=== PATIENT | female | born 1975 | race Caucasian/White ===

== ENCOUNTER 2017-01-18 20:39 | Emergency (ER) | payer BC, OTHER ==
[2017-01-18] MEDS ORDERED: METHYLPREDNISOLONE PF 125MG/VIAL IVP ONE (20:58)
[2017-01-18] MEDS ORDERED: IPRATROPIUM/ALBUTEROL (0.5MG/3MG) NEB INH ONE (20:59)
--- NOTE | 2017-01-18 21:04 | Emergency Department Record ---
History of Present Illness - General Chief Complaint: Difficulty Breathing Stated Complaint: FREDERIC Time Seen by Provider: 01/18/17 20:45 Source: Patient Mode of Arrival: Wheelchair Limitations: No limitations - History of Present Illness Initial Comments: pt has had upper resp illness which got much worse today w sob. pt has been hospitalized for resp distress in the last year. pt also has a toothache which hurts in the lower r jaw with numbnessover jaw MD Complaint: "Asthma attack" Onset/Timin -: Days(s) Severity: Mild Consistency: Getting worse Improves With: Nothing Worsens With: Exertion Known History Of: Asthma Associated Symptoms: Denies other symptoms Treatments Prior to Arrival: Bronchodilator - Related Data Home Oxygen Therapy: No Home Medications Medication Instructions Recorded Confirmed Last Taken Albuterol Sulfate [Ventolin Hfa] 1 - 2 puff IH .EVERY 4-6 HOURS PRN 01/18/1709/29 Unknown Duloxetine HCl [Cymbalta] 60 mg PO DAILY 01/18/17 01/18/17 Unknown Pregabalin [Lyrica] 75 mg PO DAILY 01/18/17 01/18/17 Unknown Previous Rx's Medication Instructions Recorded Cephalexin [Keflex] 500 mg PO QID #30 cap 01/18/17 Hydrocodone/Acetaminophen [[place] 1 each PO Q6HR #7 tablet 01/18/17 5-325 Tablet] Prednisone [Prednisone 20Mg] 20 mg PO BIDPC #8 tab 01/18/17 Allergies Allergy/AdvReac Type Severity Reaction Status Date / Time azithromycin Allergy RASH Verified 01/18/17 20:52 Penicillins Allergy PT UNSURE Verified 01/18/17 20:52 OF REACTION Travel Screening - Travel/Exposure Within Last 30 Days Have you traveled within the last 30 days?: No - Travel/Exposure Within Last Year Have you traveled outside the [place] in the last year?: No - Additonal Travel Details Have you been exposed to anyone with a communicable illness?: No - Travel Symptoms Symptom Screening: None Review of Systems Reviewed: No additional complaints except as noted below Constitutional: Reports: As per HPI. Denies: Chills, Fever, Malaise, Night sweats, Weakness, Weight change Eyes: Reports: As per HPI. Denies: Eye discharge, Eye pain, Photophobia, Vision change ENT: Reports: As per HPI. Denies: Congestion, Dental pain, Ear pain, Epistaxis , Hearing loss, Throat pain Respiratory: Reports: As per HPI. Denies: Cough, Dyspnea, Hemoptysis, Stridor, Wheezes Cardiovascular: Reports: As per HPI. Denies: Arrhythmia, Chest pain, Dyspnea on exertion, Edema, Murmurs, Orthopnea, Palpitations, Paroxysmal nocturnal dyspnea, Rheumatic Fever, Syncope Endocrine: Reports: As per HPI. Denies: Fatigue, Heat or cold intolerance, Polydipsia, Polyuria Gastrointestinal: Reports: As per HPI. Denies: Abdominal pain, Constipation, Diarrhea, Hematemesis, Hematochezia, Melena, Nausea, Vomiting Genitourinary: Reports: As per HPI. Denies: Abnormal menses, Discharge, Dyspareunia, Dysuria, Frequency, Hematuria, Incontinence, Retention, Urgency Musculoskeletal: Reports: As per HPI. Denies: Arthralgia, Back pain, Gout, Joint swelling, Myalgia, Neck pain Skin: Reports: As per HPI. Denies: Bruising, Change in color, Change in hair/ nails, Lesions, Pruritus, Rash Neurological: Reports: As per HPI. Denies: Abnormal gait, Confusion, Headache, Numbness, Paresthesias, Seizure, Tingling, Tremors, Vertigo, Weakness Psychiatric: Reports: As per HPI. Denies: Anxiety, Auditory hallucinations, Depression, Homicidal thoughts, Suicidal thoughts, Visual hallucinations Hematological/Lymphatic: Reports: As per HPI. Denies: Anemia, Blood Clots, Easy bleeding, Easy bruising, Swollen glands Past Medical History - SOCIAL HISTORY Smoking Status: Current every day smoker Alcohol Use: None Drug Use: None - RESPIRATORY Hx Respiratory Disorders: Yes Hx Asthma: Yes Comment:: hospitalized with ARDS and hypoxia at [facility] last yr. - CARDIOVASCULAR Hx Cardio Disorders: No - NEURO Hx Neuro Disorders: No - GI Hx GI Disorders: No - Hx Genitourinary Disorders: No - ENDOCRINE Hx Endocrine Disorders: No - MUSCULOSKELETAL Hx Musculoskeletal Disorders: Yes Hx Fibromyalgia: Yes - PSYCH Hx Psych Problems: Yes Hx Anxiety: Yes - HEMATOLOGY/ONCOLOGY Hx Hematology/Oncology Disorders: No Family Medical History Any Significant Family History?: No Physical Exam - General General Appearance: Alert, Oriented x3, Cooperative, Mild distress - Head Head exam: Normal inspection - Eye Eye exam: Normal appearance, PERRL, EOMI Pupils: Normal accommodation - ENT ENT exam: Normal exam, Mucous membranes moist, Normal external ear exam, Normal orophraynx Ear exam: Normal external inspection. negative: External canal tenderness Nasal Exam: Normal inspection. negative: Discharge, Sinus tenderness Mouth exam: Normal external inspection, Tongue normal Teeth exam: Normal inspection. negative: Dental caries Throat exam: Normal inspection. negative: Tonsillar erythema, Tonsillar exudate - Neck Neck exam: Normal inspection, Full ROM. negative: Tenderness - Respiratory Respiratory exam: Accessory muscle use, Respiratory distress, Wheezes - Cardiovascular Cardiovascular Exam: Regular rate, Normal rhythm, Normal heart sounds - GI/Abdominal GI/Abdominal exam: Soft, Normal bowel sounds. negative: Tenderness - Rectal Rectal exam: Deferred - exam: Deferred - Extremities Extremities exam: Normal inspection, Full ROM, Normal capillary refill. negative: Tenderness - Back Back exam: Reports: Normal inspection, Full ROM. Denies: Muscle spasm, Rash noted, Tenderness - Neurological Neurological exam: Alert, CN II-XII intact, Normal gait, Oriented X3 - Psychiatric Psychiatric exam: Normal affect, Normal mood - Skin Skin exam: Dry, Intact, Normal color, Warm Course Vital Signs 01/18/17 01/18/17 01/18/17 20:42 20:46 20:54 Temperature 98.3 F Pulse Rate 95 H Pulse Rate [ 104 H 95 H Pulse Ox Probe] Respiratory 42 H 40 H 40 H Rate Blood Pressure 126/60 Blood Pressure 126/60 [Left Arm] Pulse Ox 99 99 - Reevaluation(s) Reevaluation #1: 01/18/17 22:21 pt feels better. still has some expiratory wheezing Reevaluation #2: 01/18/17 23:23 pt feels better Medical Decision Making - Lab Data Result diagrams: 01/18/17 21:05 01/18/17 21:05 Disposition Disposition: Discharge Clinical Impression: Asthma attack, Tooth ache Disposition: Home, Self-Care Condition: (1) Good Instructions: Asthma (ED), Toothache (ED) Additional Instructions: follow up with family doctor and with dentist. return sooner if worse. Prescriptions: Hydrocodone/Acetaminophen [Newry 5-325 Tablet] 1 each PO Q6HR #7 tablet Cephalexin [Keflex] 500 mg PO QID #30 cap Prednisone [Prednisone 20Mg] 20 mg PO BIDPC #8 tab Forms: Patient Portal Access Quality - Quality Measures Quality Measures: N/A - Blood Pressure Screening Does Patient Have Any of the Following: No Blood Pressure Classification: Pre-Hypertensive BP Reading Systolic Measurement: 126 Diastolic Measurement: 60 Screening for High Blood Pressure: < Pre-Hypertensive BP, F/U Documented > [ G8950] Pre-Hypertensive Follow-up Interventions: Follow-up with rescreen every year.
[2017-01-18 21:09] LABS: HEMATOCRIT 25.8 % (35.0-47.0); HEMOGLOBIN 7.6 gm/dl (11.6-16.0); MEAN CELL VOLUME 70.1 fl (81-97); MEAN CORPUSCULAR HGB CONC 29.5 g/dl (32-36); MEAN PLATELET VOLUME 9.8 fl (7.4-10.4); PLATELET COUNT 165 K/uL (130-400); RED BLOOD COUNT 3.68 M/uL (3.80-5.40); RED CELL DISTRIBUTION WIDTH 20.5 % (11.5-14.5); WHITE BLOOD COUNT W/O DIFF 6.9 K/uL (4.2-12.2)
[2017-01-18 21:10] LABS: MEAN CORPUSCULAR HEMOGLOBIN 20.6 pg (27-33)
[2017-01-18 21:20] LABS: ANION GAP 8.8 (7-16); BLOOD UREA NITROGEN 12 mg/dL (7-17); CARBON DIOXIDE 20.2 mmol/L (22-30); EST GLOMERULAR FILTRATION RATE > 60 ml/min; GLUCOSE,RANDOM 109 mg/dL (70-110)
[2017-01-18] MEDS ORDERED: ALBUTEROL SULFATE (0.083%) 2.5 MG/3 ML NEB INH ONE ×2 (22:16→22:57)
[2017-01-18] MEDS ORDERED: CEPHALEXIN 500 MG CAPSULE PO STA (22:58)
[2017-01-18] MEDS ORDERED: HYDROCODONE/APAP 5/325MG TABLET PO ONE (23:26)
--- NOTE | 2017-01-19 10:53 | RADIOLOGY REPORT ---
EXAM: CHEST, TWO VIEWS HISTORY: ASTHMA, ACUTE DIFFICULTY BREATHING. TECHNIQUE: Two views of the chest were obtained. Comparison: None. FINDINGS: No consolidative change identified. There is peribronchial cuffing. The cardiac silhouette, diaphragm, and osseous structures are unremarkable. IMPRESSION: PERIBRONCHIAL CUFFING WHICH CAN BE SEEN WITH REACTIVE AIRWAY DISEASE. NO DENSE INFILTRATE IDENTIFIED. JOB NUMBER: [id number] MTDD
== END 2017-01-18 23:45 | disposition home or self-care (01) ==
LOC: ER 20:39
DX: J45.901 Unspecified asthma with (acute) exacerbation (principal); F17.210 Nicotine dependence, cigarettes, uncomplicated; K08.89 Other specified disorders of teeth and supporting structures
CPT/HCPCS: 71020; 80048; 85027; 94640; 96374; 99284; J2930; J7613

== ENCOUNTER 2017-01-19 17:25 | Inpatient (IN) | payer OTHER ==
[2017-01-19] MEDS ORDERED: ACETAMINOPHEN 325 MG TAB PO ONE (17:43)
[2017-01-19] MEDS ORDERED: METHYLPREDNISOLONE PF 125MG/VIAL IVP ONE (17:44)
[2017-01-19] MEDS ORDERED: IPRATROPIUM/ALBUTEROL (0.5MG/3MG) NEB INH ONE (17:44)
[2017-01-19] MEDS ORDERED: LORAZEPAM 2 MG/ML VIAL IV ONE (17:46)
--- NOTE | 2017-01-19 17:54 | Emergency Department Record ---
History of Present Illness - General Chief Complaint: Asthma Stated Complaint: SHORT OF BREATH Time Seen by Provider: 01/19/17 17:37 Source: Patient Mode of Arrival: Ambulatory Limitations: No limitations - History of Present Illness Initial Comments: The patient is here due to a 2 day hx of cough and congestion. She was in the ED last evening about 24 hours ago for the same thing and was diagnosed with an URI with reactive airway dz and possibly an abscessed tooth. She was discharged on an inhaller, Prednisone and Keflex. Now she states her FREDERIC is worse and she is getting SOB with any exertion. She also has a dry cough but denies any chest pain, back pain, EDGE, or sputum production. The patient states she had a hx of being hospitalized last year at [facility] due to a URI and ARDS with Hypoxia. MD Complaint: Shortness of breath, Wheezing Onset/Timin -: Hour(s) Asthma History: Adult onset, History of prior ED visit Severity: Mild Associated Symptoms: Fever Treatments Prior to Arrival: Inhaled bronchodilator Treatment Prior to Arrival Comment:: albuterol. - Related Data Current Asthma Therapy: Inhaled bronchodilator Home Medications Medication Instructions Recorded Confirmed Last Taken Ibuprofen 800 mg PO Q8HR PRN 01/19/17 01/19/17 01/19/17 12:00 800 mg Nicotine [Nicotine 21Mg] 1 patch TD DAILY 01/19/17 01/19/17 01/19/17 12:00 Pregabalin [Lyrica] 600 mg PO DAILY 01/19/17 01/19/17 01/19/17 10:00 600 mg Previous Rx's Medication Instructions Recorded Cephalexin [Keflex] 500 mg PO QID #30 cap 01/18/17 Hydrocodone/Acetaminophen [[place] 1 each PO Q6HR #7 tablet 01/18/17 5-325 Tablet] Prednisone [Prednisone 20Mg] 20 mg PO BIDPC #8 tab 01/18/17 Allergies Allergy/AdvReac Type Severity Reaction Status Date / Time azithromycin Allergy RASH Verified 01/19/17 17:28 Penicillins Allergy PT UNSURE Verified 01/19/17 17:28 OF REACTION Travel Screening - Travel/Exposure Within Last 30 Days Have you traveled within the last 30 days?: No - Travel/Exposure Within Last Year Have you traveled outside the [place] in the last year?: No - Additonal Travel Details Have you been exposed to anyone with a communicable illness?: No - Travel Symptoms Symptom Screening: None Review of Systems Constitutional: Reports: Fever, Malaise. Denies: Chills Eyes: Denies: Eye discharge ENT: Reports: Congestion Respiratory: Reports: Cough, Dyspnea Cardiovascular: Denies: Arrhythmia, Chest pain Endocrine: Reports: Fatigue Gastrointestinal: Denies: Diarrhea Genitourinary: Denies: Dysuria Musculoskeletal: Denies: Back pain Past Medical History - SOCIAL HISTORY Smoking Status: Current every day smoker Alcohol Use: None Drug Use: None - RESPIRATORY Hx Respiratory Disorders: Yes Hx Asthma: Yes Comment:: hospitalized with ARDS and hypoxia at [facility] last yr. - CARDIOVASCULAR Hx Cardio Disorders: No - NEURO Hx Neuro Disorders: No - GI Hx GI Disorders: No - Hx Genitourinary Disorders: No - ENDOCRINE Hx Endocrine Disorders: No - MUSCULOSKELETAL Hx Musculoskeletal Disorders: Yes Hx Fibromyalgia: Yes - PSYCH Hx Psych Problems: Yes Hx Anxiety: Yes - HEMATOLOGY/ONCOLOGY Hx Hematology/Oncology Disorders: No Family Medical History Any Significant Family History?: No Physical Exam - General General Appearance: Alert, Oriented x3, Cooperative, No acute distress - Head Head exam: Atraumatic, Normocephalic, Normal inspection - Eye Eye exam: Normal appearance, PERRL - ENT ENT exam: Normal exam, Mucous membranes moist, Normal external ear exam, Normal orophraynx, TM's normal bilaterally Throat exam: Normal inspection. negative: Tonsillar erythema, Tonsillar exudate - Neck Neck exam: Normal inspection, Full ROM. negative: Tenderness - Respiratory Respiratory exam: Decreased breath sounds, Wheezes (mildly at the bases.). negative: Normal lung sounds bilaterally, Accessory muscle use, Prolonged expiratory, Respiratory distress, Rhonchi, Stridor - Cardiovascular Cardiovascular Exam: Regular rate, Normal rhythm, Normal heart sounds - GI/Abdominal GI/Abdominal exam: Soft, Normal bowel sounds. negative: Tenderness - Extremities Extremities exam: Normal inspection, Full ROM, Normal capillary refill. negative: Tenderness - Neurological Neurological exam: Normal gait. negative: Abnormal gait, Alert, Motor sensory deficit Course Vital Signs 01/19/17 17:29 Temperature 101.0 F H Pulse Rate 99 H Respiratory 22 Rate Blood Pressure 151/83 Pulse Ox 96 - Reevaluation(s) Reevaluation #1: The patient is doing much better at this time. She is resting comfortably and breathing much better. Her repeat temp is 99.1 and she is breathing at 15 times a minute with a biox of 97% on 2 liters of O2. On exam she is still wheezing but no longer is labored and has good aeration. Due to her hx of severe infections and the fact she has worsened since presenting to the ER here last night she will be admitted to the hospital. I did discuss the case with Genesis HIDALGO) and she does accept the patient for Dr. Lara. 01/19/17 18:48 Medical Decision Making - Lab Data Result diagrams: 01/20/17 06:29 01/19/17 18:00 Disposition Disposition: Admit Clinical Impression: Asthma attack Pneumonia Qualifiers: Pneumonia type: due to unspecified organism Laterality: left Lung location: unspecified part of lung Qualified Code(s): J18.9 - Pneumonia, unspecified organism Disposition: Still a Patient at [facility] Decision to Admit: Admit from ER Decision to Admit Date: 01/19/17 Decision to Admit Time: 18:50 Accepting Physician: Jane Time Discussed w/Accepting Physician: 18:50 Condition: (2) Stable Time of Disposition: 18:50 Quality - Quality Measures Quality Measures: N/A - Blood Pressure Screening View Details: Yes Does Patient Have Any of the Following: No Blood Pressure Classification: Pre-Hypertensive BP Reading Systolic Measurement: 151 Diastolic Measurement: 83 Screening for High Blood Pressure: < Pre-Hypertensive BP, F/U Documented > [ G8950] Pre-Hypertensive Follow-up Interventions: Referral to alternative/primary care provider.
[2017-01-19] MEDS ORDERED: ALBUTEROL SULFATE (0.083%) 2.5 MG/3 ML NEB INH ONE (18:07)
[2017-01-19 18:11] LABS: HEMATOCRIT 25.1 % (35.0-47.0); HEMOGLOBIN 7.4 gm/dl (11.6-16.0); MEAN CELL VOLUME 69.9 fl (81-97); MEAN CORPUSCULAR HEMOGLOBIN 20.6 pg (27-33); MEAN CORPUSCULAR HGB CONC 29.5 g/dl (32-36); PLATELET COUNT 197 K/uL (130-400); RED BLOOD COUNT 3.59 M/uL (3.80-5.40); RED CELL DISTRIBUTION WIDTH 20.9 % (11.5-14.5)
[2017-01-19] MEDS ORDERED: LEVOFLOXACIN/D5W 750 MG/150 ML BAG IVPB ONE (18:19)
[2017-01-19 18:23] LABS: ANISOCYTOSIS 1+; HYPOCHROMIA 2+; MICROCYTOSIS 1+; PLATELET ESTIMATE NORMAL (NORMAL)
[2017-01-19 18:24] LABS: ALB/GLOB RATIO 1.2 (1.1-1.8); ALBUMIN 3.6 gm/dL (3.5-5.0); ALKALINE PHOSPHATASE 52 U/L (38-126); ALT/SGPT 49 U/L (9-52); ANION GAP 8.2 (7-16); AST/SGOT 25 U/L (14-36); BILIRUBIN,TOTAL 0.75 mg/dL (0.2-1.3); BLOOD UREA NITROGEN 10 mg/dL (7-17); CARBON DIOXIDE 20.8 mmol/L (22-30); CREATININE 0.8 mg/dL (0.52-1.04); EST GLOMERULAR FILTRATION RATE > 60 ml/min; GLUCOSE,RANDOM 111 mg/dL (70-110); TOTAL PROTEIN 6.6 gm/dL (6.3-8.2)
[2017-01-19 18:36] LABS: C-REACTIVE PROTEIN 21.3 mg/dL (0.0-0.9)
[2017-01-19] MEDS ORDERED: IBUPROFEN 600 MG TABLET PO ONE (18:50)
[2017-01-19] MEDS ORDERED: FERROUS SULFATE 325 MG TAB PO SCH (19:08)
[2017-01-19] MEDS ORDERED: ACETAMINOPHEN 500 MG TABLET PO PRN (22:51)
[2017-01-19] MEDS: FERROUS SULFATE 325 MG TAB PO SCH (22:53)
[2017-01-19] MEDS ORDERED: FLU VAC QS 2017-18 (INPT, 6MO+) 60MCG/0.5ML IM ONE (23:36)
[2017-01-20] MEDS: HYDROCODONE/APAP 5/325MG TABLET PO SCH ×2 (00:06→07:33)
[2017-01-20] MEDS: IPRATROPIUM/ALBUTEROL (0.5MG/3MG) NEB INH PRN ×7 (02:57→21:47)
[2017-01-20] MEDS: IBUPROFEN 600 MG TABLET PO PRN ×2 (03:27→11:40)
--- NOTE | 2017-01-20 05:40 | History & Physical ---
History of Present Illness - Date of Service Date of Service for History & Physical: 01/20/17 - History of Present Illness Admitting Diagnosis: 1. Acute Pneumonia with Respiratory Distress. History of Present Illness: 41 yo F admitted for pneumonia. PMHx of asthma, anxiety, fibromyalgia, obesity and iron deficiency anemia. Patient presented to our ED yesterday after two days of cough, congestion & FREDERIC. She was in the ED the night prior for similar symptoms. D/w URI and possible abscessed tooth. She was given breathing treatments and sent home with an inhaler, keflex and po steroid. Symptoms aggravated by exertion, talking. Alleviated by IV steroids and breathing treatments. Associated symptoms fever, right bottom tooth pain. Upon presentation, T 101, HR 99, BP 151/83, RR 22, O2 96% RA. wbc 11.3, neut 89 , hgb 7.4, hct 25.6, MCV 69.9. CXR: persistent reticular patter with peribronchial cuffing which may be related to a component of reactive airway disease. Questionable slightly more confluent opacity over the heart border on the lateral view for which superimposed atypical pneumonitis is not excluded. She was given tylenol and motrin for fever. 0.5 mg of IV Ativan for anxiety. Started on IV Levaquin 750 mg Q24H, Solu- medrol 60 mg and breathing treatments. Patient admitted for further medical management. 01/20- Patient lying comfortably in bed. she admits to experiencing some right sided mouth pain due to possible right lower tooth abscess. Patient was supposed to have tooth pulled by her dentist, however she was admitted. She's anxious to go home, though continues to experience non productive cough and sob. She's no longer using supplemental oxygen and sating appropriately. Denies fever, chills, n/v/ abd pain, dysuria, hematuria, productive cough, headache, lightheadedness, blood in stool, or unintentional weight change. + cough, fatigue. Patient denies any recent travel or sick contacts. She was hospitalized at [place] 1.5 years ago for similar symptoms. She state she was not diagnosed with asthma until later in life. Recently moved from the [facility]. States she for her 3 weeks ago and has had a very stressful few weeks. She's in need of a new PCP noting her recent move. Patient's found to be anemia. states she has a long h/o GIUSEPPE. She used to take iron therapy, which improved her hgb, however stopped this many years ago. GIUSEPPE thought to be related to irreg menstrual periods. PCP: none Travel Screening - Travel/Exposure Within Last 30 Days Have you traveled within the last 30 days?: No - Travel/Exposure Within Last Year Have you traveled outside the [place] in the last year?: No - Additonal Travel Details Have you been exposed to anyone with a communicable illness?: No - Travel Symptoms Symptom Screening: Fever (Subjective), Weakness, Fatigue, Lack of Appetite, Chills Review of Systems Constitutional: Reports: Fever, Malaise. Denies: Chills, Night sweats, Weakness Eyes: Denies: Eye discharge ENT: Reports: Congestion Respiratory: Reports: Cough, Dyspnea Cardiovascular: Denies: Arrhythmia, Chest pain Endocrine: Reports: Fatigue Gastrointestinal: Denies: Abdominal pain, Constipation, Diarrhea, Hematemesis, Hematochezia, Nausea, Vomiting Genitourinary: Denies: Dysuria Musculoskeletal: Denies: Back pain Skin: Reports: Bruising (generalized) Neurological: Denies: Abnormal gait, Confusion, Headache Psychiatric: Reports: Anxiety Hematological/Lymphatic: Reports: Anemia, Easy bruising Past Medical History - SOCIAL HISTORY Smoking Status: Current every day smoker Alcohol Use: None Drug Use: None - RESPIRATORY Hx Respiratory Disorders: Yes Hx Asthma: Yes Hx Pneumonia: Yes Comment:: hospitalized with Acute respitory failure with hypoxia at [facility] last yr. - CARDIOVASCULAR Hx Cardio Disorders: No - NEURO Hx Neuro Disorders: No - GI Hx GI Disorders: No Comment:: occassional heartburn relieved with Tums - Hx Genitourinary Disorders: No - ENDOCRINE Hx Endocrine Disorders: No - MUSCULOSKELETAL Hx Musculoskeletal Disorders: Yes Hx Fibromyalgia: Yes Hx Gout: Yes (feet, no current flare) - PSYCH Hx Psych Problems: Yes Hx Anxiety: Yes - HEMATOLOGY/ONCOLOGY Hx Hematology/Oncology Disorders: No Hx Anemia: Yes Family Medical History Any Significant Family History?: Yes Hx Cancer: Mother *Cancer Comment: COLON CA Hx Heart Disease: Mother *Heart Comment: HTN Hx Resp Disorders: Brother/Sister *Resp Comment: ASTHMA H&P Meds/Allergies - Allergies Allergies: Allergies Allergy/AdvReac Type Severity Reaction Status Date / Time azithromycin Allergy RASH Verified 01/19/17 17:28 Penicillins Allergy PT UNSURE Verified 01/19/17 17:28 OF REACTION - Home Medications Home Medications Medication Instructions Recorded Confirmed Last Taken Ibuprofen 800 mg PO Q8HR PRN 01/19/17 01/19/17 01/19/17 12:00 800 mg Nicotine [Nicotine 21Mg] 1 patch TD DAILY 01/19/17 01/19/17 01/19/17 12:00 Pregabalin [Lyrica] 600 mg PO DAILY 01/19/17 01/19/17 01/19/17 10:00 600 mg Previous Rx's Medication Instructions Recorded Cephalexin [Keflex] 500 mg PO QID #30 cap 01/18/17 Hydrocodone/Acetaminophen [[place] 1 each PO Q6HR #7 tablet 01/18/17 5-325 Tablet] Prednisone [Prednisone 20Mg] 20 mg PO BIDPC #8 tab 01/18/17 - Active Medications Active Medications: Current Medications Acetaminophen (Tylenol 500mg Tab) 500 mg PO Q6H PRN PRN Reason: PAIN/TEMP Hydrocodone Bitart/Acetaminophen ([place] 5mg/325mg) 1 each PO Q6HR URIEL Last Admin: 01/20/17 00:06 Dose: 1 each Albuterol/Ipratropium (Duoneb) 3 ml INH RESP.Q4H PRN PRN Reason: Wheezing Last Admin: 01/20/17 02:57 Dose: 3 ml Duloxetine HCl (Cymbalta) 60 mg PO DAILY URIEL Ferrous Sulfate (Iron) 325 mg PO BID [facility] Last Admin: 01/19/17 22:53 Dose: Not Given Levofloxacin/Dextrose (Levaquin 750mg Ivpb) 750 mg in 150 mls @ 125 mls/hr IVPB Q24H ONE Stop: 01/20/17 19:11 Ibuprofen (Motrin 600mg) 600 mg PO Q8H PRN PRN Reason: Analgesia Last Admin: 01/20/17 03:27 Dose: 600 mg Methylprednisolone Sodium Succinate (Solu-Medrol) 60 mg IVP DAILY URIEL Pregabalin (Lyrica) 75 mg PO DAILY [facility] Physical Exam - Vital Signs Vital Signs: Vital Signs - Last 24 Hrs Temp Pulse Pulse Resp BP Pulse Ox 01/20/17 02:59 88 16 01/20/17 02:57 84 16 94 L 01/19/17 22:51 98.7 F 73 20 121/62 97 - General General Appearance: Alert, Oriented x3, Cooperative, No acute distress Limitations: No limitations - Head Head exam: Atraumatic, Normocephalic, Normal inspection - Eye Eye exam: Normal appearance, PERRL - ENT ENT exam: Normal exam, Mucous membranes moist, Normal external ear exam, Normal orophraynx, TM's normal bilaterally Throat exam: Normal inspection. negative: Tonsillar erythema, Tonsillar exudate - Neck Neck exam: Normal inspection, Full ROM. negative: Tenderness - Respiratory Respiratory exam: Decreased breath sounds, Wheezes (mildly at the bases.). negative: Normal lung sounds bilaterally, Accessory muscle use, Prolonged expiratory, Respiratory distress, Rhonchi, Stridor - Cardiovascular Cardiovascular Exam: Regular rate, Normal rhythm, Normal heart sounds - GI/Abdominal GI/Abdominal exam: Soft, Normal bowel sounds. negative: Tenderness - Rectal Rectal exam: Deferred - exam: Deferred - Extremities Extremities exam: Normal inspection, Full ROM, Normal capillary refill. negative: Tenderness - Back Back exam: Reports: Normal inspection - Neurological Neurological exam: Normal gait. negative: Abnormal gait, Alert, Motor sensory deficit - Skin Skin exam: Dry, Normal color, Warm. negative: Diaphoretic, Rash Distribution of rash: RLE, LLE (a few bruises noted on LE's) Results - Labs Result Diagrams: 01/20/17 06:29 01/19/17 18:00 VTE H&P Assessment - Risk for VTE Risk for VTE: Yes Risk Level: Low Risk Assessment Date: 01/20/17 Risk Assessment Time: 10:00 VTE Orders Placed or Will Be Placed: No VTE Reason for No Prophylaxis: Not Indicated (low risk, ambulating the room) Plan - Inpatient Certification Inpatient Certification: Admit to inpatient care: Based on my medical assessment, after consideration of patient's risk factors (age, co-morbidities and patient presenting symptoms and acuity), I expect that this patient will remain in the hospital greater than or equal to two midnights and that the services needed warrant inpatient care because: Patient Risk Factors: [SOB, FREDERIC, asthma, pneumonia, anemic] Estimated length of stay: [2-3 nights] The patient may reasonably be expected to be discharged or transferred to a hospital within 96 hours after admission to [facility]. Services needed: [iron supp, due neb treatments by resp, supp oxygen, IV antibiotics and IV steroids, fever control, VS monitoring] Post hospital care (if known): [home, self care] I certify that my determination is in accordance with my understanding of Medicare requirements for reasonable and necessary inpatient services. 01/20/17 10:56 - Detailed Diagnosis and Plan (1) Pneumonia Current Visit: Yes Status: Acute Qualifiers: Pneumonia type: due to unspecified organism Laterality: left Lung location: unspecified part of lung Qualified Code(s): J18.9 - Pneumonia, unspecified organism Base Code: J18.9 - PNEUMONIA, UNSPECIFIED ORGANISM Comment: 01/20- 41 yo f h/o asthma. fever 101 on admisison. WBC 11.3. CXR: reactive air disease. questionable pneumonitis. - IV Levaquin 750 mg Q 24H - 60 mg of IV Solu- medrol - Duo neb treatments Q 4Hs - supp O2 PRN - tylenol/motrin for any fevers - monitor WBC - will get patient information re the [facility] practice as she will need a new family physician upon d/c. (2) Iron deficiency anemia Current Visit: Yes Status: Acute Base Code: D50.9 - IRON DEFICIENCY ANEMIA, UNSPECIFIED Comment: 01/20/17- thought to be related to irreg menstrual periods ? Unknown baseline H/H. Continue iron supp. - will order iron level - no signs of blood loss - monitor H/H closely - hem/onc vs. obgyn referral as outpatient (3) Asthma attack Current Visit: Yes Status: Acute Base Code: J45.901 - UNSPECIFIED ASTHMA WITH (ACUTE) EXACERBATION Comment: 01/20/17- IV abx (pna coverage), steroids, duo neb treatments. (4) Tooth ache Current Visit: No Status: Acute Base Code: K08.89 - OTHER SPECIFIED DISORDERS OF TEETH AND SUPPORTING STRUCTURES Comment: 01/20- pt will contact her dentist to re schedule tooth pull. [place] 5/325 mg Q 4-6H PRN for pain. PO Keflex for possible infection. (5) Full code status Current Visit: Yes Status: Acute Base Code: Z78.9 - OTHER SPECIFIED HEALTH STATUS Comment: 01/20- pt is full code (6) DVT prophylaxis Current Visit: Yes Status: Acute Base Code: [id number] - Comment: 01/20- low risk. patient ambulating room. if mobility decreaes, will consider compression socks/SCDs
[2017-01-20 07:09] LABS: HEMATOCRIT 25.6 % (35.0-47.0); HEMOGLOBIN 7.4 gm/dl (11.6-16.0); MEAN CELL VOLUME 70.7 fl (81-97); MEAN CORPUSCULAR HEMOGLOBIN 20.4 pg (27-33); MEAN CORPUSCULAR HGB CONC 28.9 g/dl (32-36); PLATELET COUNT 170 K/uL (130-400); RED BLOOD COUNT 3.62 M/uL (3.80-5.40); RED CELL DISTRIBUTION WIDTH 21.1 % (11.5-14.5); WHITE BLOOD COUNT W/O DIFF 11.3 K/uL (4.2-12.2)
--- NOTE | 2017-01-20 07:21 | RADIOLOGY REPORT ---
EXAM: CHEST, TWO VIEWS HISTORY: ACUTE DIFFICULTY BREATHING AND WHEEZING. PRODUCTIVE COUGH FOR TWO DAYS. TECHNIQUE: Two views of the chest were obtained. Comparison: Chest x-ray 01/18/17. FINDINGS: Persistent reticular pattern with peribronchial cuffing. There may be slightly more confluent opacity overlying the heart border on the lateral view when compared to the previous study. The cardiac silhouette, diaphragm, and osseous structures are unremarkable. IMPRESSION: PERSISTENT RETICULAR PATTERN WITH PERIBRONCHIAL CUFFING WHICH MAY RELATE TO A COMPONENT OF REACTIVE AIRWAY DISEASE. THERE IS QUESTIONABLY A SLIGHTLY MORE CONFLUENT OPACITY OVER THE HEART BORDER ON THE LATERAL VIEW FOR WHICH SUPERIMPOSED ATYPICAL PNEUMONITIS IS NOT EXCLUDED. JOB NUMBER: [id number] MTDD
[2017-01-20 07:28] LABS: ANISOCYTOSIS 1+; HYPOCHROMIA 2+; PLATELET ESTIMATE NORMAL (NORMAL)
[2017-01-20] MEDS ORDERED: DULOXETINE HCL 30 MG CAPSULE.DR PO SCH (10:00)
[2017-01-20] MEDS ORDERED: PREGABALIN 25 MG CAPSULE PO SCH (10:00)
[2017-01-20] MEDS: DULOXETINE HCL 30 MG CAPSULE.DR PO SCH (10:22)
[2017-01-20] MEDS: NICOTINE 21 MG/24 HOUR PATCH TD SCH (10:22)
[2017-01-20] MEDS: PREGABALIN (LYRICA) 100MG CAPSULE PO SCH (10:22)
[2017-01-20] MEDS: FERROUS SULFATE 325 MG TAB PO SCH ×2 (10:22→21:47)
[2017-01-20] MEDS ORDERED: HYDROCODONE/APAP 5/325MG TABLET PO PRN ×2 (11:11→11:33)
[2017-01-20] MEDS: METHYLPREDNISOLONE PF 125MG/VIAL IVP SCH (11:40)
[2017-01-20] MEDS: HYDROCODONE/APAP 5/325MG TABLET PO PRN ×3 (11:41→21:47)
[2017-01-20] MEDS ORDERED: LEVOFLOXACIN/D5W 750 MG/150 ML BAG IVPB ONE (18:00)
[2017-01-21] MEDS: IPRATROPIUM/ALBUTEROL (0.5MG/3MG) NEB INH PRN ×3 (05:05→18:58)
[2017-01-21] MEDS: HYDROCODONE/APAP 5/325MG TABLET PO PRN ×5 (05:05→22:55)
[2017-01-21 06:55] LABS: BLOOD UREA NITROGEN 15 mg/dL (7-17); CARBON DIOXIDE 24.8 mmol/L (22-30); CREATININE 0.8 mg/dL (0.52-1.04); EST GLOMERULAR FILTRATION RATE > 60 ml/min; GLUCOSE,RANDOM 97 mg/dL (70-110)
[2017-01-21 07:05] LABS: HEMATOCRIT 24.5 % (35.0-47.0); HEMOGLOBIN 7.1 gm/dl (11.6-16.0); MEAN CELL VOLUME 71.2 fl (81-97); MEAN CORPUSCULAR HEMOGLOBIN 20.6 pg (27-33); MEAN PLATELET VOLUME 11.2 fl (7.4-10.4); PLATELET COUNT 192 K/uL (130-400); RED BLOOD COUNT 3.44 M/uL (3.80-5.40); WHITE BLOOD COUNT W/O DIFF 9.9 K/uL (4.2-12.2)
[2017-01-21 07:30] LABS: ANISOCYTOSIS 1+; HYPOCHROMIA 2+
[2017-01-21] MEDS: IBUPROFEN 600 MG TABLET PO PRN ×2 (08:19→17:56)
--- NOTE | 2017-01-21 08:46 | Physician Progress Note ---
Subjective - Date Date of Physician Progress Note: 01/21/17 - Subjective Subjective Comment: lying in bed comfortably. states her lower right tooth continues to be painful. daniel does take the edge off. states she slept well. afebrile. denies chills, n/v/abd pain, cp, dysuria, dizziness, lightheadedness, blood in stool, or hematochezia. tolerating meals. Objective - Vital Signs Vital Signs: Vital Signs - Last 24 Hrs Temp Pulse Pulse Resp BP BP Pulse Ox 01/21/17 05:49 98.1 F 50 L 22 147/88 94 L 01/20/17 21:00 98.0 F 65 20 153/88 93 L 01/20/17 17:08 76 15 01/20/17 15:00 99.0 F 83 18 128/70 95 01/20/17 14:07 75 15 01/20/17 12:28 98.1 F 127/73 01/20/17 11:49 77 15 01/20/17 09:00 20 01/20/17 08:50 75 16 98 - General General Appearance: Alert, Oriented x3, Cooperative, No acute distress Limitations: No limitations - Head Head exam: Atraumatic, Normocephalic, Normal inspection - Eye Eye exam: Normal appearance, PERRL - ENT ENT exam: Normal exam, Mucous membranes moist, Normal external ear exam, Normal orophraynx, TM's normal bilaterally Throat exam: Normal inspection. negative: Tonsillar erythema, Tonsillar exudate - Neck Neck exam: Normal inspection, Full ROM. negative: Tenderness - Respiratory Respiratory exam: Decreased breath sounds, Wheezes (diffuse). negative: Normal lung sounds bilaterally, Accessory muscle use, Prolonged expiratory, Respiratory distress, Rhonchi, Stridor - Cardiovascular Cardiovascular Exam: Regular rate, Normal rhythm, Normal heart sounds - GI/Abdominal GI/Abdominal exam: Soft, Normal bowel sounds. negative: Tenderness - Rectal Rectal exam: Deferred - exam: Deferred - Extremities Extremities exam: Normal inspection, Full ROM, Normal capillary refill. negative: Tenderness - Back Back exam: Reports: Normal inspection - Neurological Neurological exam: Normal gait. negative: Abnormal gait, Alert, Motor sensory deficit - Skin Skin exam: Dry, Normal color, Warm. negative: Diaphoretic, Rash Distribution of rash: RLE, LLE (a few bruises noted on LE's) Assessment and Plan - Assessment and Plan (1) Pneumonia Current Visit: Yes Status: Acute Qualifiers: Pneumonia type: due to unspecified organism Laterality: left Lung location: unspecified part of lung Qualified Code(s): J18.9 - Pneumonia, unspecified organism Base Code: J18.9 - PNEUMONIA, UNSPECIFIED ORGANISM Comment: 01/21- 41 yo f h/o asthma. afebrile. WBC normal. CXR: reactive air disease. questionable pneumonitis. - IV Levaquin 750 mg Q 24H - 60 mg of IV Solu- medrol - Duo neb treatments Q 4Hs - supp O2 PRN - tylenol/motrin for any fevers - monitor WBC - repeat CXR this am (2) Iron deficiency anemia Current Visit: Yes Status: Acute Base Code: D50.9 - IRON DEFICIENCY ANEMIA, UNSPECIFIED Comment: 01/21/17- thought to be related to irreg menstrual periods ? Unknown baseline H/H. Continue iron supp. - will order iron level - no signs of blood loss - monitor H/H closely - hem/onc vs. obgyn referral as outpatient (3) Asthma attack Current Visit: Yes Status: Acute Base Code: J45.901 - UNSPECIFIED ASTHMA WITH (ACUTE) EXACERBATION Comment: 01/21/17- IV abx (pna coverage), steroids, duo neb treatments. (4) Tooth ache Current Visit: No Status: Acute Base Code: K08.89 - OTHER SPECIFIED DISORDERS OF TEETH AND SUPPORTING STRUCTURES Comment: 01/21- pt will contact her dentist to re schedule tooth pull. [place] 5/325 mg 1-1.5 tans Q 4-6H PRN for pain. PO Keflex for possible infection. (5) Full code status Current Visit: Yes Status: Acute Base Code: Z78.9 - OTHER SPECIFIED HEALTH STATUS Comment: 01/21- pt is full code (6) DVT prophylaxis Current Visit: Yes Status: Acute Base Code: [id number] - Comment: 01/21- low risk. patient ambulating room. if mobility decreaes, will consider compression socks/SCDs Results - Labs Result Diagrams: 01/21/17 06:09 01/21/17 06:09 Labs Last 24 Hours: Laboratory Results - last 24 hr 01/21/17 01/21/17 01/21/17 06:09 06:09 06:09 WBC 9.9 RBC 3.44 L Hgb 7.1 L Hct 24.5 L MCV 71.2 L MCH 20.6 L MCHC 29.0 L RDW 21.0 H Plt Count 192 MPV 11.2 H Neutrophils % 85.0 H Eosinophils % Not Reportable Basophils % Not Reportable Lymphocytes 11.0 L Monocytes 4.0 Hypochromasia 2+ Anisocytosis 1+ Sodium 138 Potassium 4.5 Carbon Dioxide 24.8 BUN 15 Creatinine 0.8 Estimated GFR > 60 Random Glucose 97 Calcium 9.1 C-Reactive Protein 8.5 H DVT/PE Assessment - Risk for VTE Risk for VTE: No Risk Level: Low Risk Assessment Date: 01/20/17 Risk Assessment Time: 10:00 VTE Orders Placed or Will Be Placed: No VTE Reason for No Prophylaxis: Not Indicated (low risk, ambulating the room) - Active Medicaitons Current Medications: Current Medications Acetaminophen (Tylenol 500mg Tab) 500 mg PO Q6H PRN PRN Reason: PAIN/TEMP Hydrocodone Bitart/Acetaminophen ([place] 5mg/325mg) 1 each PO Q4H PRN PRN Reason: Pain - General Hydrocodone Bitart/Acetaminophen ([place] 5mg/325mg) 1.5 each PO Q4H PRN PRN Reason: Pain - General Last Admin: 01/21/17 05:05 Dose: 1.5 each Albuterol/Ipratropium (Duoneb) 3 ml INH RESP.Q4H PRN PRN Reason: Wheezing Last Admin: 01/21/17 05:05 Dose: 3 ml Duloxetine HCl (Cymbalta) 90 mg PO DAILY [facility] Last Admin: 01/20/17 10:22 Dose: 90 mg Ferrous Sulfate (Iron) 325 mg PO BID [facility] Last Admin: 01/20/17 21:47 Dose: 325 mg Ibuprofen (Motrin 600mg) 600 mg PO Q8H PRN PRN Reason: Analgesia Last Admin: 01/21/17 08:19 Dose: 600 mg Methylprednisolone Sodium Succinate (Solu-Medrol) 60 mg IVP DAILY [facility] Last Admin: 01/20/17 11:40 Dose: 60 mg Nicotine (Nicotine 21mg) 1 patch TD DAILY [facility] Last Admin: 01/20/17 10:22 Dose: 1 patch Pregabalin (Lyrica) 600 mg PO DAILY [facility] Last Admin: 01/20/17 10:22 Dose: 600 mg AMI Plan - Labs Result Diagrams: 01/21/17 06:09 01/21/17 06:09
[2017-01-21] MEDS: FERROUS SULFATE 325 MG TAB PO SCH ×2 (10:50→21:26)
[2017-01-21] MEDS: METHYLPREDNISOLONE PF 125MG/VIAL IVP SCH (10:50)
[2017-01-21] MEDS: DULOXETINE HCL 30 MG CAPSULE.DR PO SCH (10:50)
[2017-01-21] MEDS: PREGABALIN (LYRICA) 100MG CAPSULE PO SCH (10:52)
[2017-01-21] MEDS: NICOTINE 21 MG/24 HOUR PATCH TD SCH (11:47)
[2017-01-21] MEDS: CEPHALEXIN 500 MG PO SCH ×2 (11:49→21:26)
[2017-01-21 12:19] LABS: ANION GAP 5.2 (7-16)
[2017-01-21] MEDS ORDERED: LEVOFLOXACIN/D5W 750 MG/150 ML BAG IVPB SCH (18:00)
[2017-01-22] MEDS: IPRATROPIUM/ALBUTEROL (0.5MG/3MG) NEB INH PRN ×3 (02:59→14:12)
[2017-01-22] MEDS: IBUPROFEN 600 MG TABLET PO PRN ×2 (03:24→09:06)
[2017-01-22] MEDS: HYDROCODONE/APAP 5/325MG TABLET PO PRN (03:24)
[2017-01-22 07:42] LABS: HEMATOCRIT 25.6 % (35.0-47.0); MEAN CELL VOLUME 71.5 fl (81-97); MEAN CORPUSCULAR HEMOGLOBIN 20.1 pg (27-33); MEAN CORPUSCULAR HGB CONC 28.1 g/dl (32-36); MEAN PLATELET VOLUME 10.6 fl (7.4-10.4); PLATELET COUNT 234 K/uL (130-400); RED BLOOD COUNT 3.58 M/uL (3.80-5.40); RED CELL DISTRIBUTION WIDTH 21.4 % (11.5-14.5); WHITE BLOOD COUNT W/O DIFF 9.6 K/uL (4.2-12.2)
[2017-01-22 07:51] LABS: HEMOGLOBIN 7.2 gm/dl (11.6-16.0)
[2017-01-22 07:53] LABS: ANION GAP 4.2 (7-16); BLOOD UREA NITROGEN 19 mg/dL (7-17); CARBON DIOXIDE 25.8 mmol/L (22-30); CREATININE 0.9 mg/dL (0.52-1.04); EST GLOMERULAR FILTRATION RATE > 60 ml/min; GLUCOSE,RANDOM 81 mg/dL (70-110)
[2017-01-22 07:57] LABS: ANISOCYTOSIS 2+; HYPOCHROMIA 3+
--- NOTE | 2017-01-22 08:07 | RADIOLOGY REPORT ---
EXAM: CHEST 2 VIEWS HISTORY: ASTHMA, DIFFICULTY IN BREATHING. TECHNIQUE: Frontal and lateral views of the chest were performed. FINDINGS: Heart size normal. There is diffuse prominence of the pulmonary interstitium. No localized consolidation or pleural effusion. The osseous structures are normal. IMPRESSION: DIFFUSE PROMINENCE OF THE PULMONARY INTERSTITIUM. FINDINGS MAY RELATE TO ATYPICAL PNEUMONIA. NO LOBAR CONSOLIDATION OR PLEURAL EFFUSION. JOB NUMBER: [id number] MTDD
[2017-01-22] MEDS: DULOXETINE HCL 30 MG CAPSULE.DR PO SCH (09:07)
[2017-01-22] MEDS: FERROUS SULFATE 325 MG TAB PO SCH (09:07)
[2017-01-22] MEDS: NICOTINE 21 MG/24 HOUR PATCH TD SCH (09:08)
[2017-01-22] MEDS: PREGABALIN (LYRICA) 100MG CAPSULE PO SCH (09:08)
[2017-01-22] MEDS: METHYLPREDNISOLONE PF 125MG/VIAL IVP SCH (09:13)
[2017-01-22] MEDS: CEPHALEXIN 500 MG PO SCH (09:13)
--- NOTE | 2017-01-22 09:49 | Discharge Summary ---
Providers Discharge Summary Date: 01/22/17 Date of admission: 01/19/17 22:32 Expected Date of Discharge: 01/22/17 Attending physician: SARAY FAIRCHILD Physical Exam - Vital Signs Vital Signs: Vital Signs - Last 24 Hrs Temp Pulse Pulse Resp BP BP Pulse Ox 01/22/17 09:06 66 20 93 L 01/22/17 03:02 66 16 99 01/21/17 21:16 98.3 F 56 L 20 121/72 95 01/21/17 20:49 61 16 01/21/17 19:01 69 16 100 01/21/17 15:00 99.2 F 61 18 137/77 92 L 01/21/17 10:54 84 20 94 L 01/21/17 10:52 84 20 94 L - General General Appearance: Alert, Oriented x3, Cooperative, No acute distress Limitations: No limitations - Head Head exam: Atraumatic, Normocephalic, Normal inspection - Eye Eye exam: Normal appearance, PERRL - ENT ENT exam: Normal exam, Mucous membranes moist, Normal external ear exam, Normal orophraynx, TM's normal bilaterally Throat exam: Normal inspection. negative: Tonsillar erythema, Tonsillar exudate - Neck Neck exam: Normal inspection, Full ROM. negative: Tenderness - Respiratory Respiratory exam: Decreased breath sounds, Wheezes (diffuse, significantly improved). negative: Normal lung sounds bilaterally, Accessory muscle use, Prolonged expiratory, Respiratory distress, Rhonchi, Stridor - Cardiovascular Cardiovascular Exam: Regular rate, Normal rhythm, Normal heart sounds - GI/Abdominal GI/Abdominal exam: Soft, Normal bowel sounds. negative: Tenderness - Rectal Rectal exam: Deferred - exam: Deferred - Extremities Extremities exam: Normal inspection, Full ROM, Normal capillary refill. negative: Tenderness - Back Back exam: Reports: Normal inspection - Neurological Neurological exam: Normal gait. negative: Abnormal gait, Alert, Motor sensory deficit - Skin Skin exam: Dry, Normal color, Warm. negative: Diaphoretic, Rash Distribution of rash: RLE, LLE (a few bruises noted on LE's) Hospitalization - Hospitalization Admission Diagnosis: 1. Acute Pneumonia with Respiratory Distress. - Problem List/Discharge Diagnosis (1) Pneumonia Status: Acute Discharge Diagnosis: Pneumonia type: due to unspecified organism Laterality: left Lung location: unspecified part of lung Qualified Code(s): J18.9 - Pneumonia, unspecified organism Base Code: J18.9 - PNEUMONIA, UNSPECIFIED ORGANISM Comment: 01/22- 41 yo f h/o asthma. afebrile. WBC normal. CXR: reactive air disease vs questionable pneumonitis/ atypical pna. - PO Levaquin 750 mg Q 24H - prednisone taper - Duo neb treatments Q 4HR - tylenol/motrin for any fevers - repeat CXR Tuesday - contact [facility] tuesday to establish care - patient agree's to return sooner re any new or worsening SOB, cough, fever, chills, dizziness or lightheadedness. (2) Iron deficiency anemia Status: Acute Base Code: D50.9 - IRON DEFICIENCY ANEMIA, UNSPECIFIED Comment : 01/22/17- thought to be related to irreg menstrual periods? Unknown baseline H/ H. - iron level: 22 - no signs of blood loss - h/h stable - hem/onc vs. obgyn referral as outpatient - she will continue ferrous sulfate as outpatient. (3) Asthma attack Status: Acute Base Code: J45.901 - UNSPECIFIED ASTHMA WITH (ACUTE) EXACERBATION Comment: 01/22/17- PO Levaquin, Prednisone taper, duo neb treatments at home. Our RT, Jay, allowed patient to borrow a nebulizer machine as patient was having issues obtaining a machine due to insuance. - patient will contact [facility] tuesday to schedule an appt- est care and follow up from hospital stay. (4) Tooth ache Status: Acute Base Code: K08.89 - OTHER SPECIFIED DISORDERS OF TEETH AND SUPPORTING STRUCTURES Comment: 01/22- dental visit Tuesday. Clinton 5/325 mg 1- 1.5 tabs Q 4-6H PRN for pain. Continue PO Keflex for possible infection. (5) Full code status Status: Acute Base Code: Z78.9 - OTHER SPECIFIED HEALTH STATUS Comment: 01/22 - pt remained full code - Hospitalization Course Disposition: Home, Self-Care Hospital Course: 41 yo F admitted for pneumonia. PMHx of asthma, anxiety, fibromyalgia, obesity and iron deficiency anemia. Patient presented to our ED yesterday after two days of cough, congestion & FREDERIC. She was in the ED the night prior for similar symptoms. D/w URI and possible abscessed tooth. She was given breathing treatments and sent home with an inhaler, keflex and po steroid. Symptoms aggravated by exertion, talking. Alleviated by IV steroids and breathing treatments. Associated symptoms fever, right bottom tooth pain. Upon presentation, T 101, HR 99, BP 151/83, RR 22, O2 96% RA. wbc 11.3, neut 89 , hgb 7.4, hct 25.6, MCV 69.9. CXR: persistent reticular patter with peribronchial cuffing which may be related to a component of reactive airway disease. Questionable slightly more confluent opacity over the heart border on the lateral view for which superimposed atypical pneumonitis is not excluded. She was given tylenol and motrin for fever. 0.5 mg of IV Ativan for anxiety. Started on IV Levaquin 750 mg Q24H, Solu- medrol 60 mg and breathing treatments. Patient admitted for further medical management. 01/20- Patient lying comfortably in bed. she admits to experiencing some right sided mouth pain due to possible right lower tooth abscess. Patient was supposed to have tooth pulled by her dentist, however she was admitted. She's anxious to go home, though continues to experience non productive cough and sob. She's no longer using supplemental oxygen and sating appropriately. Denies fever, chills, n/v/ abd pain, dysuria, hematuria, productive cough, headache, lightheadedness, blood in stool, or unintentional weight change. + cough, fatigue. Patient denies any recent travel or sick contacts. She was hospitalized at [facility] 1.5 years ago for similar symptoms. She state she was not diagnosed with asthma until later in life. Recently moved from the [place] area. States she for her 3 weeks ago and has had a very stressful few weeks. She's in need of a new PCP noting her recent move. Patient's found to be anemia. states she has a long h/o GIUSEPPE. She used to take iron therapy, which improved her hgb, however stopped this many years ago. GIUSEPPE thought to be related to irreg menstrual periods. PCP: none 01/22/17- patient sitting up in bed comfortably. appears much more energetic today. she states she feels much improved. she's finally able to bring sputum up - we will obtain sputum cx. states less sob. able to complete sentences without coughing. afebrile. ambulating the room. tolerating meals. normal GI/ function. tooth pain present- patient has dental visit for extraction on tuesday. Procedures: Imaging and X-Rays 01/21/17 07:39 CXR [CHEST 2 VIEWS] [RAD] Stat Abnormal Labs: Abnormal Lab Results 01/20/17 01/21/17 01/21/17 Range/Units 06:29 06:09 06:09 RBC 3.62 L 3.44 L (3.80-5.40) M/uL Hgb 7.4 L 7.1 L (11.6-16.0) gm/dl Hct 25.6 L 24.5 L (35.0-47.0) % MCV 70.7 L 71.2 L (81-97) fl MCH 20.4 L 20.6 L (27-33) pg MCHC 28.9 L 29.0 L (32-36) g/dl RDW 21.1 H 21.0 H (11.5-14.5) % MPV 11.2 H (7.4-10.4) fl Neutrophils % 85.0 H 85.0 H (47-80) % Lymphocytes 7.0 L 11.0 L (16-45) % Chloride 108 H (98-107) mmol/L Anion Gap 5.2 L (7-16) BUN (7-17) mg/dL Iron (30-170) ug/dL C-Reactive Protein (0.0-0.9) mg/dL 01/21/17 01/21/17 01/22/17 Range/Units 06:09 06:15 07:33 RBC 3.58 L (3.80-5.40) M/uL Hgb 7.2 L (11.6-16.0) gm/dl Hct 25.6 L (35.0-47.0) % MCV 71.5 L (81-97) fl MCH 20.1 L (27-33) pg MCHC 28.1 L (32-36) g/dl RDW 21.4 H (11.5-14.5) % MPV 10.6 H (7.4-10.4) fl Neutrophils % (47-80) % Lymphocytes (16-45) % Chloride (98-107) mmol/L Anion Gap (7-16) BUN (7-17) mg/dL Iron 22 L (30-170) ug/dL C-Reactive Protein 8.5 H (0.0-0.9) mg/dL 01/22/17 Range/Units 07:33 RBC (3.80-5.40) M/uL Hgb (11.6-16.0) gm/dl Hct (35.0-47.0) % MCV (81-97) fl MCH (27-33) pg MCHC (32-36) g/dl RDW (11.5-14.5) % MPV (7.4-10.4) fl Neutrophils % (47-80) % Lymphocytes (16-45) % Chloride 109 H (98-107) mmol/L Anion Gap 4.2 L (7-16) BUN 19 H (7-17) mg/dL Iron (30-170) ug/dL C-Reactive Protein (0.0-0.9) mg/dL Condition at Discharge: (2) Stable Discharge Medications - Discharge Medications Prescriptions: Ferrous Sulfate [Iron] 325 mg PO BID #60 tab Ipratropium/Albuterol [Duoneb] 3 ml INH RESP.Q4H PRN #120 PRN Reason: Wheezing Levofloxacin [Levaquin] 750 mg PO DAILY #5 tablet Home Medications: Ambulatory Orders Albuterol Sulfate [Ventolin Hfa] 1 - 2 puff IH .EVERY 4-6 HOURS PRN 01/18/17 [ Last Taken 01/19/17] Cephalexin [Keflex] 500 mg PO QID #30 cap 01/18/17 [Last Taken 01/19/17] Hydrocodone/Acetaminophen [Clinton 5-325 Tablet] 1 each PO Q6HR #7 tablet [Last Taken 01/19/17] Ibuprofen 800 mg PO Q8HR PRN 01/19/17 [Last Taken 01/19/17 12:00 800 mg] Duloxetine HCl [Cymbalta] 90 mg PO DAILY #30 01/22/17 [Last Taken 01/19/17] Ferrous Sulfate [Iron] 325 mg PO BID #60 tab 01/22/17 [Last Taken Unknown] Ipratropium/Albuterol [Duoneb] 3 ml INH RESP.Q4H PRN #120 01/22/17 [Last Taken Unknown] Levofloxacin [Levaquin] 750 mg PO DAILY #5 tablet 01/22/17 [Last Taken Unknown] Prednisone [Prednisone 20Mg] 20 mg PO DAILY #13 tab 01/22/17 [Last Taken ] Pregabalin [Lyrica] 600 mg PO DAILY #120 01/22/17 [Last Taken 01/19/17 10:00 600 mg] Discharge Plan - Discharge Instructions Activity at Discharge: Increase Activity as Tolerated Diet at Discharge: Regular Diet Additional Instructions: Follow up with Kisha Camarena [phone]. Secure PCP off [facility] provider options given [employer]. Nebulizer to be obtained/delivered from [facility] . Use nebulizer and bring back when you return for follow up visit. contact [facility] tuesday morning to establish care with provider continue home medications. respirtory medications: Duo neb treatments every 4 hours Levaquin 750 mg by mouth x 5 days. Prednisone taper Take ferrous sulfate as well for iron deficiency anemia Tylenol/motrin for any fevers. increase fluids, REST! Schedule a visit to follow up with a family physician. return if you're experiencing any diff in breathing, fever, dizziness or lightheadedness.
== END 2017-01-22 15:06 | disposition home or self-care (01) | DRG 194 ==
LOC: ER 17:25 → MEDSURG 22:32
PROVIDERS: ADMIT Family Medicine; ATTEND Family Medicine
DX: J18.9 Pneumonia, unspecified organism (principal); J45.901 Unspecified asthma with (acute) exacerbation; R06.00 Dyspnea, unspecified; D50.9 Iron deficiency anemia, unspecified; K08.89 Other specified disorders of teeth and supporting structures; Z78.9 Other specified health status; M79.7 Fibromyalgia; I10 Essential (primary) hypertension
CPT/HCPCS: 71020; 80048; 80053; 83540; 85027; 86140; 87070; 90686; 94640; 94760; 94761; 96374; 96375; 99223; 99233; 99239; 99285; J1956; J2930; J7613

== ENCOUNTER 2017-11-20 01:55 | Observation (INO) | payer BC, OTHER ==
[2017-11-20] MEDS ORDERED: IPRATROPIUM/ALBUTEROL (0.5MG/3MG) NEB INH ONE (01:56)
--- NOTE | 2017-11-20 01:59 | Emergency Department Record ---
History of Present Illness - General Stated Complaint: FREDERIC Time Seen by Provider: 11/20/17 01:56 Source: Patient Mode of Arrival: Ambulatory Limitations: No limitations - History of Present Illness Initial Comments: 42 yo female presents to ED for evaluation of shortness of breath symptoms that began 5 hours ago, reports "I think I'm having an asthma exacerbation". Patient denies fevers, chills, or recent illness. Patient does report using albuterol prior to arrival that did not improve her symptoms. Patient denies lower extremity swelling, denies OCP use. Patient denies previous history of DVT/PE. MD Complaint: Shortness of breath Onset/Timin -: Hour(s) Severity: Moderate Consistency: Constant Improves With: Nothing Worsens With: Exertion Known History Of: Asthma Associated Symptoms: Denies other symptoms Treatments Prior to Arrival: Bronchodilator - Related Data Home Oxygen Therapy: No Home Medications Medication Instructions Recorded Confirmed Last Taken Albuterol Sulfate [Proair Hfa] 1 puff INH ASDIR 11/20/17 11/20/17 Unknown Allergies Allergy/AdvReac Type Severity Reaction Status Date / Time azithromycin Allergy RASH Verified 11/20/17 02:02 Penicillins Allergy PT UNSURE Verified 11/20/17 02:02 OF REACTION Review of Systems Constitutional: Denies: Chills, Fever, Malaise, Night sweats Eyes: Denies: Eye discharge, Eye pain ENT: Denies: Congestion, Ear pain, Epistaxis Respiratory: Reports: Cough, Dyspnea Cardiovascular: Denies: Chest pain, Dyspnea on exertion, Edema Endocrine: Denies: Fatigue, Heat or cold intolerance Gastrointestinal: Denies: Abdominal pain, Nausea, Vomiting Genitourinary: Denies: Incontinence, Retention Musculoskeletal: Denies: Arthralgia, Back pain, Gout, Joint swelling Skin: Denies: Bruising, Change in color Neurological: Denies: Abnormal gait, Confusion, Headache, Seizure Psychiatric: Denies: Anxiety Hematological/Lymphatic: Denies: Anemia, Blood Clots Past Medical History - SOCIAL HISTORY Smoking Status: Current every day smoker Drug Use: None - RESPIRATORY Hx Respiratory Disorders: Yes Hx Asthma: Yes Hx Pneumonia: Yes Comment:: hospitalized with Acute respitory failure with hypoxia at [facility] last yr. - CARDIOVASCULAR Hx Cardio Disorders: No - NEURO Hx Neuro Disorders: No - GI Hx GI Disorders: No Comment:: occassional heartburn relieved with Tums - Hx Genitourinary Disorders: No - ENDOCRINE Hx Endocrine Disorders: No - MUSCULOSKELETAL Hx Musculoskeletal Disorders: Yes Hx Fibromyalgia: Yes Hx Gout: Yes (feet, no current flare) - PSYCH Hx Psych Problems: Yes Hx Anxiety: Yes - HEMATOLOGY/ONCOLOGY Hx Hematology/Oncology Disorders: No Hx Anemia: Yes Family Medical History Hx Cancer: Mother *Cancer Comment: COLON CA Hx Heart Disease: Mother *Heart Comment: HTN Hx Resp Disorders: Brother/Sister *Resp Comment: ASTHMA Physical Exam - General General Appearance: Alert, Oriented x3, Cooperative, Moderate distress Limitations: No limitations - Head Head exam: Atraumatic, Normocephalic, Normal inspection Head exam detail: negative: Abrasion, Contusion, Tejada's sign, General tenderness, Hematoma, Laceration - Eye Eye exam: Normal appearance. negative: Conjunctival injection, Periorbital swelling, Periorbital tenderness, Scleral icterus - ENT Ear exam: negative: Auricular hematoma, Auricular trauma Nasal Exam: negative: Active bleeding, Discharge, Dried blood, Foreign body Mouth exam: negative: Drooling, Laceration, Muffled voice, Tongue elevation - Neck Neck exam: Normal inspection. negative: Meningismus, Tenderness - Respiratory Respiratory exam: Decreased breath sounds, Respiratory distress. negative: Rales, Rhonchi, Stridor - Cardiovascular Cardiovascular Exam: Normal rhythm, Normal heart sounds, Tachycardia - GI/Abdominal GI/Abdominal exam: Soft. negative: Rebound, Rigid, Tenderness - Rectal Rectal exam: Deferred - exam: Deferred - Extremities Extremities exam: negative: Calf tenderness, Pedal edema, Tenderness - Back Back exam: Denies: CVA tenderness (R), CVA tenderness (L) - Neurological Neurological exam: Alert, Normal gait, Oriented X3 - Psychiatric Psychiatric exam: Anxious - Skin Skin exam: Normal color. negative: Abrasion Type of lesion: negative: abrasion Course - Reevaluation(s) Reevaluation #1: 11/20/17 02:11 EKG: NSR 90 Normal axis, QRS 103 T wave inversions III, AVF. Reevaluation #2: 11/20/17 02:35 Patient was reassessed, reports that her breathing symptoms are minimally improved. Albuterol and Solumedrol ordered pending laboratory results. Reevaluation #3: 11/20/17 02:43 Labs reviewed, Hgb 8.4 (previous 7.8), HCT 29.7. D-Dimer pending. Albuterol nebulizer is currently being administered. Reevaluation #4: 11/20/17 03:34 D-Dimer negative (0.48), CXR ordered. Reevaluation #5: 11/20/17 03:55 CXR: ? Right prince-hilar infiltrate Will perform ambulating biox and reassess. 11/20/17 03:57 Ambulating biox performed, patient's pulse increased to 110, biox 90% Will admit for further evaluation. 11/20/17 06:49 Case was discussed with Yris Brooks, will accept admission at this time Medical Decision Making - Lab Data Result diagrams: 11/20/17 01:56 11/20/17 01:56 Disposition Disposition: Admit Clinical Impression: Asthma attack Qualifiers: Asthma severity: moderate Asthma persistence: unspecified Qualified Code(s): J45.901 - Unspecified asthma with (acute) exacerbation CAP (community acquired pneumonia) Qualifiers: Laterality: right Lung location: unspecified part of lung Qualified Code(s): J18.9 - Pneumonia, unspecified organism Disposition: Still a Patient at [facility] Decision to Admit: Admit from ER Decision to Admit Date: 11/20/17 Decision to Admit Time: 03:57 Condition: (2) Stable Time of Disposition: 03:59 Quality - Quality Measures Quality Measures: N/A - Blood Pressure Screening Does Patient Have Any of the Following: Active Dx of HTN Blood Pressure Classification: Hypertensive Reading Systolic Measurement: 149 Diastolic Measurement: 77 Screening for High Blood Pressure: Patient Exclusion, Hx of HTN [[id number]] First Hypertensive Follow-up Interventions: Referral to alternative/primary care provider.
[2017-11-20 02:15] LABS: HEMATOCRIT 29.7 % (35.0-47.0); HEMOGLOBIN 8.4 gm/dl (11.6-16.0); MEAN CELL VOLUME 72.4 fl (81-97); MEAN CORPUSCULAR HGB CONC 28.3 g/dl (32-36); MEAN PLATELET VOLUME 10.5 fl (7.4-10.4); PLATELET COUNT 200 K/uL (130-400); RED CELL DISTRIBUTION WIDTH 20.7 % (11.5-14.5); WHITE BLOOD COUNT W/O DIFF 7.6 K/uL (4.2-12.2)
[2017-11-20 02:28] LABS: BLOOD UREA NITROGEN 6 mg/dL (6-20); CREATININE 0.7 mg/dL (0.5-0.9); EST GLOMERULAR FILTRATION RATE > 60 mL/min
[2017-11-20 02:29] LABS: TOTAL PROTEIN 6.9 g/dL (6.6-8.7)
[2017-11-20 02:31] LABS: GLUCOSE,RANDOM 106 mg/dL (74-109)
[2017-11-20 02:33] LABS: ALT/SGPT 7 U/L (<33); AST/SGOT 11 U/L (10.0-35.0)
[2017-11-20 02:34] LABS: ALB/GLOB RATIO 1.3 (1.1-1.8); ALBUMIN 3.9 g/dL (4.0-5.0); ALKALINE PHOSPHATASE 44 U/L (35-104)
[2017-11-20] MEDS ORDERED: METHYLPREDNISOLONE PF 125MG/VIAL IVP ONE (02:37)
[2017-11-20 02:38] LABS: MEAN CORPUSCULAR HEMOGLOBIN 20.4 pg (27-33)
[2017-11-20] MEDS ORDERED: ALBUTEROL SULFATE (0.083%) 2.5 MG/3 ML NEB INH SCH (02:45)
[2017-11-20] MEDS ORDERED: LEVOFLOXACIN/D5W 750 MG/150 ML BAG IVPB ONE ×2 (03:58→04:27)
[2017-11-20 04:04] LABS: ANISOCYTOSIS 1+; PLATELET ESTIMATE NORMAL (NORMAL); POLYCHROMASIA 1+
[2017-11-20 04:05] LABS: MICROCYTOSIS 1+
[2017-11-20] MEDS ORDERED: 0.9 % SODIUM CHLORIDE 1000ML 1,000 ML IV PRN (04:27)
[2017-11-20] MEDS ORDERED: ALBUTEROL SULFATE (0.083%) 2.5 MG/3 ML NEB INH PRN (04:27)
[2017-11-20] MEDS: IPRATROPIUM/ALBUTEROL (0.5MG/3MG) NEB INH SCH ×2 (06:06→09:23)
[2017-11-20] MEDS ORDERED: IBUPROFEN 400 MG TABLET PO PRN (06:43)
--- NOTE | 2017-11-20 09:59 | History & Physical ---
History of Present Illness - Date of Service Date of Service for History & Physical: 11/20/17 - History of Present Illness Admitting Diagnosis: Acute exacerbation asthma. CAP. Hypoxia History of Present Illness: 42 year old female presents to ED for evaluation of shortness of breath that worsened throughout the afternoon. Patient has a history of asthma and felt that she was having an acute asthma exacerbation. Patient denied fever, chills , cough, or recent illness. She does report feeling extreme fatigue over the past 2 days. Patient has a home nebulizer that she used [employer] which did not provide any relief of her symptoms. Patient has no other risk factors for a PE , denies lower extremitiy swelling or pain, no OCP use, no previous history of DVT/PE. Patient's other medical history includes asthma, anxiety, and depression. ED Course: EKG: NSR with a rate of 90, T wave inversions in III, AVF Labs: WBC 7.6, Hgb 8.4 (previously 7.8), HCT 29.7, d-dimer 0.48 CXR: preliminary reading indicates right prince-hilar infiltrate Received Duoneb and Solumedrol IVP Ambulating biox performed, patient's pulse increased to 110, biox 90% PCP: Benjamín 11/20/2017: Patient A&O x 4, resting comfortably in bed, no respiratory distress. Patient remains on 1L oxygen via [place] due to low pulse ox throughout the night. Patient has been started on Levaquin and receiving Solumedrol and Duoneb. Reports improvement in breathing at this time. Patient continues to have mild expiratory wheezes in upper lung townsend. Will repeat ambulating biox, if WNL will dc home with Levaquin, albuterol nmt, and short dose of steroids. Patient to follow-up with PCP in 2 weeks. Travel Screening - Travel/Exposure Within Last 30 Days Have you traveled within the last 30 days?: No - Travel/Exposure Within Last Year Have you traveled outside the [place] in the last year?: No - Additonal Travel Details Have you been exposed to anyone with a communicable illness?: No - Travel Symptoms Symptom Screening: None Review of Systems Constitutional: Reports: As per HPI. Denies: Chills, Fever, Malaise, Night sweats Eyes: Denies: Eye discharge, Eye pain ENT: Denies: Congestion, Ear pain, Epistaxis Respiratory: Reports: As per HPI, Cough, Dyspnea Cardiovascular: Denies: Chest pain, Dyspnea on exertion, Edema, Palpitations, Syncope Endocrine: Reports: Fatigue. Denies: Heat or cold intolerance Gastrointestinal: Denies: Abdominal pain, Nausea, Vomiting Genitourinary: Denies: Incontinence, Retention Musculoskeletal: Denies: Arthralgia, Back pain, Gout, Joint swelling Skin: Denies: Bruising, Change in color Neurological: Denies: Abnormal gait, Confusion, Headache, Seizure Psychiatric: Denies: Anxiety Hematological/Lymphatic: Denies: Anemia, Blood Clots Past Medical History - SOCIAL HISTORY Smoking Status: Current every day smoker Drug Use: None - RESPIRATORY Hx Respiratory Disorders: Yes Hx Asthma: Yes Hx Pneumonia: Yes Comment:: hospitalized with Acute respitory failure with hypoxia at [facility] last yr. - CARDIOVASCULAR Hx Cardio Disorders: No - NEURO Hx Neuro Disorders: No - GI Hx GI Disorders: No Comment:: occassional heartburn relieved with Tums - Hx Genitourinary Disorders: No - ENDOCRINE Hx Endocrine Disorders: No - MUSCULOSKELETAL Hx Musculoskeletal Disorders: Yes Hx Fibromyalgia: Yes Hx Gout: Yes (feet, no current flare) - PSYCH Hx Psych Problems: Yes Hx Anxiety: Yes - HEMATOLOGY/ONCOLOGY Hx Hematology/Oncology Disorders: No Hx Anemia: Yes Family Medical History Hx Cancer: Mother *Cancer Comment: COLON CA Hx Heart Disease: Mother *Heart Comment: HTN Hx Resp Disorders: Brother/Sister *Resp Comment: ASTHMA H&P Meds/Allergies - Allergies Allergies: Allergies Allergy/AdvReac Type Severity Reaction Status Date / Time azithromycin Allergy RASH Verified 11/20/17 02:02 Penicillins Allergy PT UNSURE Verified 11/20/17 02:02 OF REACTION - Home Medications Home Medications Medication Instructions Recorded Confirmed Last Taken Albuterol Sulfate [Proair Hfa] 1 puff INH ASDIR 11/20/17 11/20/17 Unknown - Active Medications Active Medications: Current Medications Albuterol Sulfate () 2.5 mg INH RESP.Q2H PRN PRN Reason: DIFFICULTY IN BREATHING Albuterol/Ipratropium (Duoneb) 3 ml INH RESP.Q4H.AMALIA [facility] Last Admin: 11/20/17 09:23 Dose: 3 ml Duloxetine HCl (Cymbalta) 90 mg PO DAILY [facility] Last Admin: 11/20/17 09:28 Dose: 90 mg Sodium Chloride () 1,000 mls @ 100 mls/hr IV .Q10H PRN PRN Reason: LARGE VOLUME IV Ibuprofen (Motrin 400mg) 800 mg PO Q8H PRN PRN Reason: PAIN - MILD (1-4) Methylprednisolone Sodium Succinate (Solu-Medrol) 60 mg IVP DAILY [facility] Last Admin: 11/20/17 09:30 Dose: 60 mg Non-Formulary Medication (Varenicline Tartrate [Chantix]) 1 each PO DAILY [facility] Pregabalin (Lyrica) 600 mg PO DAILY [facility] Last Admin: 11/20/17 09:29 Dose: 600 mg Physical Exam - Vital Signs Vital Signs: Vital Signs - Last 24 Hrs Temp Pulse Pulse Resp BP Pulse Ox 11/20/17 09:23 91 H 18 93 L 11/20/17 08:00 97.5 F L 62 18 134/73 97 11/20/17 06:06 80 20 93 L 11/20/17 04:46 99.2 F 85 20 149/77 92 L 11/20/17 04:02 91 H 22 148/79 95 11/20/17 02:57 88 22 132/62 93 L 11/20/17 02:37 84 20 11/20/17 01:59 88 20 11/20/17 01:58 98.6 F 102 H 22 148/94 95 - General General Appearance: Alert, Oriented x3, Cooperative, No acute distress Limitations: No limitations - Head Head exam: Atraumatic, Normocephalic, Normal inspection Head exam detail: negative: Abrasion, Contusion, Tejada's sign, General tenderness, Hematoma, Laceration - Eye Eye exam: Normal appearance. negative: Conjunctival injection, Periorbital swelling, Periorbital tenderness, Scleral icterus - ENT ENT exam: Mucous membranes moist Ear exam: negative: Auricular hematoma, Auricular trauma Nasal Exam: negative: Active bleeding, Discharge, Dried blood, Foreign body Mouth exam: Normal external inspection. negative: Drooling, Laceration, Muffled voice, Tongue elevation - Neck Neck exam: Normal inspection. negative: Meningismus, Tenderness - Respiratory Respiratory exam: Decreased breath sounds (RLL), Wheezes. negative: Rales, Rhonchi, Stridor - Cardiovascular Cardiovascular Exam: Regular rate, Normal rhythm, Normal heart sounds Peripheral Pulses: 2+: Radial (R), Radial (L), Dorsalis Pedis (R), Dorsalis Pedis (L) - GI/Abdominal GI/Abdominal exam: Soft. negative: Rebound, Rigid, Tenderness - Rectal Rectal exam: Deferred - exam: Deferred - Extremities Extremities exam: Normal inspection, Normal capillary refill. negative: Calf tenderness, Pedal edema, Tenderness - Back Back exam: Denies: CVA tenderness (R), CVA tenderness (L) - Neurological Neurological exam: Alert, Normal gait, Oriented X3 - Psychiatric Psychiatric exam: Normal affect - Skin Skin exam: Normal color. negative: Abrasion Type of lesion: negative: abrasion Results - Labs Result Diagrams: 11/20/17 01:56 11/20/17 01:56 Labs Last 24 Hours: Laboratory Results - last 24 hr 11/20/17 11/20/17 11/20/17 01:56 01:56 01:56 WBC 7.6 RBC 4.10 Hgb 8.4 L Hct 29.7 L MCV 72.4 L MCH 20.4 L MCHC 28.3 L RDW 20.7 H Plt Count 200 MPV 10.5 H Neutrophils % 71.0 Band Neutrophils % 5.0 Eosinophils % Not Reportable Basophils % Not Reportable Lymphocytes 17.0 Monocytes 3.0 Platelet Estimate Normal Polychromasia 1+ Anisocytosis 1+ Microcytosis 1+ Eosinophil Count 4.0 D-Dimer 0.48 Sodium 138 Potassium 3.5 Chloride 101 Carbon Dioxide 23.0 Anion Gap 14.0 BUN 6 Creatinine 0.7 Estimated GFR > 60 Random Glucose 106 Calcium 8.7 Total Bilirubin 0.30 AST 11 ALT 7 Alkaline Phosphatase 44 Total Protein 6.9 Albumin 3.9 L Globulin 3.0 Albumin/Globulin Ratio 1.3 VTE H&P Assessment - Risk for VTE Risk for VTE: No Risk Level: Low Risk Assessment Date: 11/20/17 Risk Assessment Time: 10:01 VTE Orders Placed or Will Be Placed: No VTE Reason for No Prophylaxis: Not Indicated Plan - Detailed Diagnosis and Plan (1) Asthma attack Current Visit: Yes Status: Acute Qualifiers: Asthma severity: moderate Asthma persistence: unspecified Qualified Code( s): J45.901 - Unspecified asthma with (acute) exacerbation Base Code: J45.901 - UNSPECIFIED ASTHMA WITH (ACUTE) EXACERBATION Comment: 11/20- Tried using duoneb treatments at home with no relief of symptoms -Repeat ambulating biox -continue solumedrol and duoneb -Will dc on PO Levaquin, Prednisone taper, duo neb treatments at home. (2) CAP (community acquired pneumonia) Current Visit: Yes Status: Acute Qualifiers: Laterality: right Lung location: unspecified part of lung Qualified Code( s): J18.9 - Pneumonia, unspecified organism Base Code: J18.9 - PNEUMONIA, UNSPECIFIED ORGANISM Comment: 11/20/17: Chest x- ray in ED indicates RLL infiltrates -Started on levaquin -Solumedrol IVP -Duoneb -WBC 7.6, afebrile (3) Full code status Current Visit: No Status: Acute Base Code: Z78.9 - OTHER SPECIFIED HEALTH STATUS Comment: 11/20/17- Patient is full code
[2017-11-20] MEDS ORDERED: DULOXETINE HCL 30 MG CAPSULE.DR PO SCH (10:00)
[2017-11-20] MEDS ORDERED: VARENICLINE TARTRATE PO SCH (10:00)
[2017-11-20] MEDS ORDERED: PREGABALIN (LYRICA) 100MG CAPSULE PO SCH (10:00)
[2017-11-20] MEDS ORDERED: METHYLPREDNISOLONE PF 125MG/VIAL IVP SCH ×2 (10:00)
--- NOTE | 2017-11-20 10:50 | Discharge Summary ---
Providers Discharge Summary Date: 11/20/17 Date of admission: 11/20/17 04:26 Expected Date of Discharge: 11/20/17 Attending physician: YOLANDA BUTTS Primary care physician: YOLANDA BUTTS Physical Exam - Vital Signs Vital Signs: Vital Signs - Last 24 Hrs Temp Pulse Pulse Resp BP Pulse Ox 11/20/17 09:23 91 H 18 93 L 11/20/17 08:00 97.5 F L 62 18 134/73 97 11/20/17 06:06 80 20 93 L 11/20/17 04:46 99.2 F 85 20 149/77 92 L 11/20/17 04:02 91 H 22 148/79 95 11/20/17 02:57 88 22 132/62 93 L 11/20/17 02:37 84 20 11/20/17 01:59 88 20 11/20/17 01:58 98.6 F 102 H 22 148/94 95 - General General Appearance: Alert, Oriented x3, Cooperative, No acute distress Limitations: No limitations - Head Head exam: Atraumatic, Normocephalic, Normal inspection Head exam detail: negative: Abrasion, Contusion, Tejada's sign, General tenderness, Hematoma, Laceration - Eye Eye exam: Normal appearance. negative: Conjunctival injection, Periorbital swelling, Periorbital tenderness, Scleral icterus - ENT ENT exam: Mucous membranes moist Ear exam: negative: Auricular hematoma, Auricular trauma Nasal Exam: negative: Active bleeding, Discharge, Dried blood, Foreign body Mouth exam: Normal external inspection. negative: Drooling, Laceration, Muffled voice, Tongue elevation - Neck Neck exam: Normal inspection. negative: Meningismus, Tenderness - Respiratory Respiratory exam: Wheezes. negative: Rales, Rhonchi, Stridor - Cardiovascular Cardiovascular Exam: Regular rate, Normal rhythm, Normal heart sounds Peripheral Pulses: 2+: Radial (R), Radial (L), Dorsalis Pedis (R), Dorsalis Pedis (L) - GI/Abdominal GI/Abdominal exam: Soft. negative: Rebound, Rigid, Tenderness - Rectal Rectal exam: Deferred - exam: Deferred - Extremities Extremities exam: Normal inspection, Normal capillary refill. negative: Calf tenderness, Pedal edema, Tenderness - Back Back exam: Denies: CVA tenderness (R), CVA tenderness (L) - Neurological Neurological exam: Alert, Normal gait, Oriented X3 - Psychiatric Psychiatric exam: Normal affect - Skin Skin exam: Normal color. negative: Abrasion Type of lesion: negative: abrasion Hospitalization - Hospitalization Admission Diagnosis: Acute exacerbation asthma. CAP. Hypoxia - Problem List/Discharge Diagnosis (1) Asthma attack Current Visit: Yes Status: Acute Discharge Diagnosis: Asthma severity: moderate Asthma persistence: unspecified Qualified Code( s): J45.901 - Unspecified asthma with (acute) exacerbation Base Code: J45.901 - UNSPECIFIED ASTHMA WITH (ACUTE) EXACERBATION Comment: 11/20- Tried using duoneb treatments at home with no relief of symptoms -Repeat ambulating biox 98% -Will dc on PO Levaquin, Prednisone taper, duo neb treatments at home. (2) CAP (community acquired pneumonia) Current Visit: Yes Status: Acute Discharge Diagnosis: Laterality: right Lung location: unspecified part of lung Qualified Code( s): J18.9 - Pneumonia, unspecified organism Base Code: J18.9 - PNEUMONIA, UNSPECIFIED ORGANISM Comment: 11/20/17: Chest x- ray in ED indicates RLL infiltrates -Started on levaquin -Solumedrol IVP -Duoneb -WBC 7.6, afebrile (3) Full code status Current Visit: No Status: Acute Base Code: Z78.9 - OTHER SPECIFIED HEALTH STATUS Comment: 11/20/17- Patient is full code - Hospitalization Course Disposition: Home, Self-Care Hospital Course: 42 year old female presents to ED for evaluation of shortness of breath that worsened throughout the afternoon. Patient has a history of asthma and felt that she was having an acute asthma exacerbation. Patient denied fever, chills , cough, or recent illness. She does report feeling extreme fatigue over the past 2 days. Patient has a home nebulizer that she used [employer] which did not provide any relief of her symptoms. Patient has no other risk factors for a PE , denies lower extremitiy swelling or pain, no OCP use, no previous history of DVT/PE. Patient's other medical history includes asthma, anxiety, and depression. ED Course: EKG: NSR with a rate of 90, T wave inversions in III, AVF Labs: WBC 7.6, Hgb 8.4 (previously 7.8), HCT 29.7, d-dimer 0.48 CXR: preliminary reading indicates right prince-hilar infiltrate Received Duoneb and Solumedrol IVP Ambulating biox performed, patient's pulse increased to 110, biox 90% PCP: Benjamín 11/20/2017: Patient A&O x 4, resting comfortably in bed, no respiratory distress. Patient remains on 1L oxygen via [place] due to low pulse ox throughout the night. Patient has been started on Levaquin and receiving Solumedrol and Duoneb. Reports improvement in breathing at this time. Patient continues to have mild expiratory wheezes in upper lung [place]. Will repeat ambulating biox, if WNL will dc home with Levaquin, albuterol nmt, and short dose of steroids. Patient to follow-up with PCP in 2 weeks. Update: Patient's ambulating biox 98% on RA. Patient states significant improvement in her respiratory effort. Patient encouraged to stop smoking, states she is currently using chantix. Discussed her anemia, hgb 8.4 today. Patient states she has a history of iron deficiency anemia, with the cause likely due to irregular periods. Patient has taken iron supplements in the past but has not taken them for several months. Patient will dc on levaquin, prednisone taper, duoneb, and restart iron supplements. To follow-up with PCP in 1-2 weeks. Procedures: Imaging and X-Rays 11/20/17 03:34 CHEST 2 VIEWS [RAD] Stat Cardiology Procedures 11/20/17 01:56 EKG NOW Abnormal Labs: Abnormal Lab Results 11/20/17 11/20/17 Range/Units 01:56 01:56 Hgb 8.4 L (11.6-16.0) gm/dl Hct 29.7 L (35.0-47.0) % MCV 72.4 L (81-97) fl MCH 20.4 L (27-33) pg MCHC 28.3 L (32-36) g/dl RDW 20.7 H (11.5-14.5) % MPV 10.5 H (7.4-10.4) fl Albumin 3.9 L (4.0-5.0) g/dL Condition at Discharge: (2) Stable VTE Discharge VTE Reason For No Overlap Therapy: Not Indicated Discharge Medications - Discharge Medications Prescriptions: Ipratropium/Albuterol [Duoneb] 3 ml INH RESP.Q4H.WA PRN #30 ampul.neb PRN Reason: Wheezing Levofloxacin [Levaquin] 750 mg PO DAILY #4 tab Prednisone See Taper PO ASDIR #30 tab.[email or web address] Home Medications: Ambulatory Orders Ibuprofen 800 mg PO Q8HR PRN 01/19/17 [Last Taken 01/19/17 12:00 800 mg] Albuterol Sulfate [Proair Hfa] 1 puff INH ASDIR 11/20/17 [Last Taken Unknown] Ipratropium/Albuterol [Duoneb] 3 ml INH RESP.Q4H.WA PRN #30 ampul.neb 11/20/17 [ Last Taken Unknown] Levofloxacin [Levaquin] 750 mg PO DAILY #4 tab 11/20/17 [Last Taken Unknown] Prednisone See Taper PO ASDIR #30 tab.ds.pk 11/20/17 [Last Taken Unknown] Discharge Plan - Discharge Instructions Activity at Discharge: Increase Activity as Tolerated Diet at Discharge: Regular Diet Instructions: Asthma (ED) Additional Instructions: Start the LEVAQUIN tomorrow, you received a dose today already Start the PREDNISONE taper tomorrow, you received steroids today already Use the DUONEB as needed in your nebulizer Start taking your IRON 325mg Continue taking CHANTIX to help stop smoking Follow-up with Dr. Butts in the next 1-2 weeks. Quality Measures - Quality Measures Quality Measures: Documentation of Current Medications in Medical Record, Screening for High Blood Pressure and F/U Documented - Current Medications Quality Measure: Measure #130: Documentation of Current Medications Documentation of Current Medications: <Current Medications Documented/Reviewed> [G8427] - Blood Pressure Screening Quality Measure: Screening for High Blood Pressure and Follow-Up Documented Does Patient Have Any of the Following: No Blood Pressure Classification: Pre-Hypertensive BP Reading Systolic Measurement: 134 Diastolic Measurement: 73 Screening for High Blood Pressure: < Pre-Hypertensive BP, F/U Documented > [ G8950] Pre-Hypertensive Follow-up Interventions: Follow-up with rescreen every year. - Elder Abuse Suspicion Index EASI Reference Information: Edmond MOCK, Robert C, Kathrine D, Ankita Gracia.Development and validation of a tool to assist physicians identification of elder abuse: The Elder Abuse Suspicion Index (EASI ). Journal of Elder Abuse and Neglect, 2008; 20 (3): 276-300.
--- NOTE | 2017-11-21 08:10 | RADIOLOGY REPORT ---
EXAM: CHEST, TWO VIEWS HISTORY: DYSPNEA. TECHNIQUE: PA and lateral views of the chest were obtained. Comparison: 01/25/17. FINDINGS: The cardiomediastinal silhouette is normal in size. Atherosclerotic calcification is present in the aorta. The pulmonary vasculature is prominent. There is mild interstitial thickening in the lower lungs bilaterally with the appearance of Richelle B lines in the periphery. The central bronchi do not appear overly thickened. No focal consolidation, pleural effusion, or pneumothorax is evident. IMPRESSION: MILD DIFFUSE INTERSTITIAL THICKENING SUGGESTIVE OF MILD INTERSTITIAL EDEMA. NO FOCAL PNEUMONIA. JOB NUMBER: [id number] [facility]
== END 2017-11-20 11:57 | disposition home or self-care (01) ==
LOC: ER 01:55 → MEDSURG 04:06 → UNDOADMOB 04:06 → MEDSURG 04:26
PROVIDERS: ADMIT Internal Medicine; ATTEND Internal Medicine
DX: J18.9 Pneumonia, unspecified organism (principal); J45.901 Unspecified asthma with (acute) exacerbation; R09.02 Hypoxemia; M79.7 Fibromyalgia; D64.9 Anemia, unspecified; F17.210 Nicotine dependence, cigarettes, uncomplicated; Z87.09 Personal history of other diseases of the respiratory system
CPT/HCPCS: 99285 ×2; 96365; 96375; 80053; 85379; 85027; 71046; 94640 ×2; 94761; 93005; 93010; G0378; J1956; 99220; J2930; J7613

== ENCOUNTER 2018-05-27 18:47 | Observation (INO) | payer BC ==
--- NOTE | 2018-05-27 19:02 | Emergency Department Record ---
History of Present Illness - General Chief Complaint: Syncope Stated Complaint: SYNCOPE Time Seen by Provider: 05/27/18 18:55 Source: Patient Mode of Arrival: Ambulatory Limitations: No limitations Travel/Exposure to [place] Within 21 Days of Symptoms: No - History of Present Illness Initial Comments: 42 yo female presents after passing out. She reports she was in the shower when it occurred. She does not recall how long she was in the shower but she was asymptomatic prior to the shower. She got warm and tingling then passed out. She states she was asymptomatic all day. No history of syncope or CAD. She thinks she hit her head and has some neck pain. No weakness, tingling, vision or speech changes. Her PCP is Dalia Acosta MD Complaint: Collapsed, Loss of consciousness -: Hour(s) (6pm) Prodromal Symptoms: Lightheaded -: Minutes(s) Witnessed: No Injuries Sustained Associated with Event: Head, Neck Current Symptoms: None History: Other (No previous history) Treatments Prior to Arrival: None - Gallina Coma Scale Eye Response: (4) Open spontaneously Motor Response: (6) Obeys commands Verbal Response: (5) Oriented Morgan Total: 15 - Related Data Home Medications Medication Instructions Recorded Confirmed Last Taken Duloxetine HCl [Cymbalta] 20 mg PO TID 05/27/18 05/27/18 Unknown Allergies Allergy/AdvReac Type Severity Reaction Status Date / Time azithromycin Allergy RASH Verified 05/27/18 19:00 Penicillins Allergy PT UNSURE Verified 05/27/18 19:00 OF REACTION Review of Systems Constitutional: Denies: Chills, Fever, Malaise, Weakness Eyes: Denies: Eye discharge, Eye pain, Photophobia, Vision change ENT: Denies: Congestion, Throat pain, Other Respiratory: Denies: Cough, Dyspnea, Hemoptysis, Wheezes Cardiovascular: Reports: Syncope. Denies: Chest pain, Edema, Palpitations Endocrine: Denies: Fatigue, Polydipsia, Polyuria Gastrointestinal: Denies: Abdominal pain, Diarrhea, Nausea, Vomiting Genitourinary: Denies: Dysuria, Urgency Musculoskeletal: Denies: Arthralgia, Back pain, Joint swelling, Myalgia Skin: Denies: Bruising, Change in color, Rash Neurological: Reports: Headache. Denies: Abnormal gait, Confusion, Numbness, Paresthesias, Seizure, Tingling, Tremors, Vertigo, Weakness Psychiatric: Denies: Anxiety Hematological/Lymphatic: Denies: Blood Clots, Easy bleeding, Easy bruising Past Medical History - SOCIAL HISTORY Smoking Status: Current every day smoker Drug Use: None - RESPIRATORY Hx Respiratory Disorders: Yes Hx Asthma: Yes Hx Pneumonia: Yes Comment:: hospitalized with Acute respitory failure with hypoxia at [facility] last yr. - CARDIOVASCULAR Hx Cardio Disorders: No - NEURO Hx Neuro Disorders: No - GI Hx GI Disorders: No Comment:: occassional heartburn relieved with Tums - Hx Genitourinary Disorders: No - ENDOCRINE Hx Endocrine Disorders: No - MUSCULOSKELETAL Hx Musculoskeletal Disorders: Yes Hx Fibromyalgia: Yes Hx Gout: Yes (feet, no current flare) - PSYCH Hx Psych Problems: Yes Hx Anxiety: Yes - HEMATOLOGY/ONCOLOGY Hx Hematology/Oncology Disorders: No Hx Anemia: Yes Family Medical History Hx Cancer: Mother *Cancer Comment: COLON CA Hx Heart Disease: Mother *Heart Comment: HTN Hx Resp Disorders: Brother/Sister *Resp Comment: ASTHMA Physical Exam - General General Appearance: Alert, Oriented x3, Cooperative, No acute distress Limitations: No limitations - Head Head exam: Atraumatic, Normal inspection - Eye Eye exam: Normal appearance, PERRL, EOMI. negative: Conjunctival injection, Nystagmus, Periorbital swelling, Scleral icterus - ENT ENT exam: Normal exam, Mucous membranes moist, Normal orophraynx Ear exam: Normal external inspection Nasal Exam: Normal inspection Mouth exam: Normal external inspection - Neck Neck exam: Normal inspection - Respiratory Respiratory exam: Normal lung sounds bilaterally. negative: Respiratory distress - Cardiovascular Cardiovascular Exam: Regular rate, Normal rhythm, Normal heart sounds. negative : Diastolic murmur, Systolic murmur Peripheral Pulses: 2+: Radial (R), Radial (L) - GI/Abdominal GI/Abdominal exam: Soft. negative: Tenderness - Rectal Rectal exam: Deferred - exam: Deferred - Extremities Extremities exam: Normal inspection, Full ROM, Normal capillary refill. negative: Calf tenderness, Pedal edema, Tenderness - Back Back exam: Denies: CVA tenderness (R), CVA tenderness (L) - Neurological Neurological exam: Alert, CN II-XII intact, Oriented X3. negative: Altered, Motor sensory deficit - Psychiatric Psychiatric exam: Normal affect, Normal mood - Skin Skin exam: Dry, Intact, Normal color, Warm Course - Reevaluation(s) Reevaluation #1: EKG 18:54 Sinus rhythm rate 65, intervals normal, axis normal, ST normal, No changes from 11/20/17 05/27/18 19:05 05/27/18 19:19 The CBC was reviewed. Chronic stable anemia 05/27/18 19:57 The CMP was reviewed. No acute changes. The Troponin is negative. 05/27/18 20:06 The HCT is negative 05/27/18 20:23 The patient still has some headache and dizziness after hitting her head. I recommend OBS for syncope and concussion. I SW her PCP. Monitor. [facility] Medical Decision Making - Lab Data Result diagrams: 05/27/18 19:01 05/27/18 19:01 Disposition Disposition: Admit Clinical Impression: Syncope, Concussion Decision to Admit: Admit from ER Decision to Admit Date: 05/27/18 Decision to Admit Time: 20:15 Time Discussed w/Accepting Physician: 20:15 Condition: (2) Stable Forms: Patient Portal Access Time of Disposition: 20:23 Quality - Quality Measures Quality Measures: N/A, Blunt Head Trauma (>2yr) - Morgan Coma Scale Gallina Coma Scale: Gallina Coma Scale Eye Response: (4) Open spontaneously Motor Response: (6) Obeys commands Verbal Response: (5) Oriented Morgan Total: 15 - Blunt Head Trauma - Adult Quality Measure: Measure #415: Utilization of CT for Minor Blunt Head Trauma ICD10 Codes Entered: Yes Was CT ordered: Yes Does Patient Have Any of the Following: No Exclusions Patient Presented Within 24 Hours of Injury: Yes Gallina Score: [address] for Minor Blunt Head Trauma: < CT Done, Appropriate Indication > [G9529] Additional Inclusion Criteria: Within 24hrs (AND) GCS of 15 (AND) CT ordered. [ G9530] Indications For CT: Headache w/Loss of Consciousness - Blood Pressure Screening Does Patient Have Any of the Following: No Blood Pressure Classification: Pre-Hypertensive BP Reading Systolic Measurement: 132 Diastolic Measurement: 73 Screening for High Blood Pressure: < Pre-Hypertensive BP, F/U Documented > [ G8950] Pre-Hypertensive Follow-up Interventions: Referral to alternative/primary care provider.
[2018-05-27 19:13] LABS: BASO % 0.4 % (0-6); EOS % 1.1 % (0-6); GRAN % 76.4 % (47-80); HEMATOCRIT 29.5 % (35.0-47.0); HEMOGLOBIN 8.2 gm/dl (11.6-16.0); LYMPH % 17.3 % (16-45); MEAN CELL VOLUME 69.6 fl (81-97); MEAN CORPUSCULAR HEMOGLOBIN 19.3 pg (27-33); MEAN CORPUSCULAR HGB CONC 27.8 g/dl (32-36); MEAN PLATELET VOLUME 10.1 fl (7.4-10.4); MONO % 4.8 % (0-9); PLATELET COUNT 289 K/uL (130-400); RED BLOOD COUNT 4.24 M/uL (3.80-5.40); RED CELL DISTRIBUTION WIDTH 21.2 % (11.5-14.5); WHITE BLOOD COUNT W/O DIFF 9.6 K/uL (4.2-12.2)
[2018-05-27 19:22] LABS: BLOOD UREA NITROGEN 9 mg/dL (6-20); CREATININE 0.8 mg/dL (0.5-0.9); EST GLOMERULAR FILTRATION RATE > 60 mL/min
[2018-05-27 19:23] LABS: TOTAL PROTEIN 7.2 g/dL (6.6-8.7)
[2018-05-27 19:25] LABS: GLUCOSE,RANDOM 110 mg/dL (74-109)
[2018-05-27 19:27] LABS: ALT/SGPT 8 U/L (<33); AST/SGOT 10 U/L (10.0-35.0)
[2018-05-27 19:28] LABS: ALB/GLOB RATIO 1.2 (1.1-1.8); ALBUMIN 3.9 g/dL (4.0-5.0); ALKALINE PHOSPHATASE 39 U/L (45-87)
[2018-05-27] MEDS ORDERED: ACETAMINOPHEN 500 MG TABLET PO ONE (20:05)
[2018-05-27] MEDS ORDERED: KETOROLAC 30 MG/ML VIAL IVP ONE (20:06)
[2018-05-27] MEDS ORDERED: ACETAMINOPHEN 325 MG TAB PO PRN (21:12)
[2018-05-27] MEDS: 0.9 % SODIUM CHLORIDE 1000ML 1,000 ML IV PRN (21:22)
[2018-05-27] MEDS ORDERED: IBUPROFEN 400 MG TABLET PO PRN (21:38)
[2018-05-27] MEDS ORDERED: DULOXETINE HCL 20 MG PO SCH (22:00)
[2018-05-28] MEDS ORDERED: CALCIUM CARBONATE 500 MG TAB.CHEW PO PRN (04:02)
[2018-05-28] MEDS: 0.9 % SODIUM CHLORIDE 1000ML 1,000 ML IV PRN (07:00)
[2018-05-28] MEDS ORDERED: PREGABALIN PO SCH (10:00)
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
--- NOTE | 2018-05-28 10:20 | Discharge Summary ---
Providers Discharge Summary Date: 05/28/18 Date of admission: 05/27/18 20:40 Expected Date of Discharge: 05/28/18 Attending physician: YOLANDA REED Primary care physician: Dalia De La Cruz N.P. Physical Exam - Vital Signs Vital Signs: Vital Signs - Last 24 Hrs Temp Pulse Pulse Pulse Resp BP BP 05/28/18 09:00 87 20 05/28/18 04:00 97.8 F 57 L 57 L 20 102/53 05/28/18 00:00 98.5 F 63 20 112/50 05/27/18 20:55 98.0 F 86 60 14 112/60 05/27/18 20:45 56 L 22 110/52 05/27/18 20:05 65 22 122/68 05/27/18 18:55 97.9 F 72 18 132/73 Pulse Ox 05/28/18 09:00 05/28/18 04:00 92 L 05/28/18 00:00 91 L 05/27/18 20:55 98 05/27/18 20:45 93 L 05/27/18 20:05 95 05/27/18 18:55 98 - General General Appearance: Alert, Oriented x3, Cooperative, No acute distress Limitations: No limitations - Head Head exam: Atraumatic, Normal inspection - Eye Eye exam: Normal appearance, PERRL, EOMI. negative: Conjunctival injection, Nystagmus, Periorbital swelling, Scleral icterus - ENT ENT exam: Normal exam, Mucous membranes moist, Normal orophraynx Ear exam: Normal external inspection Nasal Exam: Normal inspection Mouth exam: Normal external inspection - Neck Neck exam: Normal inspection - Respiratory Respiratory exam: Normal lung sounds bilaterally. negative: Respiratory distress - Cardiovascular Cardiovascular Exam: Regular rate, Normal rhythm, Normal heart sounds. negative : Diastolic murmur, Systolic murmur Peripheral Pulses: 2+: Radial (R), Radial (L) - GI/Abdominal GI/Abdominal exam: Soft. negative: Tenderness - Rectal Rectal exam: Deferred - exam: Deferred - Extremities Extremities exam: Normal inspection, Full ROM, Normal capillary refill. negative: Calf tenderness, Pedal edema, Tenderness - Back Back exam: Denies: CVA tenderness (R), CVA tenderness (L) - Neurological Neurological exam: Alert, CN II-XII intact, Oriented X3. negative: Altered, Motor sensory deficit - Psychiatric Psychiatric exam: Depressed (tearful at times) - Skin Skin exam: Dry, Intact, Normal color, Warm Hospitalization - Hospitalization Admission Diagnosis: syncope, concussion - Problem List/Discharge Diagnosis (1) Syncope Current Visit: Yes Status: Acute Base Code: R55 - SYNCOPE AND COLLAPSE Comment: 05/28/18: -Poss secondary to anxiety attack vs. chronic anemia -Neuro checks wnl -Pt. recieved 1 L IVF (2) Anxiety and depression Current Visit: Yes Status: Acute Base Code: F41.9 - ANXIETY DISORDER, UNSPECIFIED; F32.9 - MAJOR DEPRESSIVE DISORDER, SINGLE EPISODE, UNSPECIFIED Comment: 05/28/18: -hx of depression and fibromyalgia, wrosening depression over last 2 weeks -will d/c with xanax for severe anxiety/panic and f/u w/PCP on 06/01 -recommended crisis lines and on-call service if symptoms worsen -Pt denies SI (3) Iron deficiency anemia Current Visit: No Status: Acute Base Code: D50.9 - IRON DEFICIENCY ANEMIA, UNSPECIFIED Comment: 05/28/18: - thought to be related to irreg menstrual periods - no signs of blood loss - h/h stable - SH[employer]PERVIS[employer] RN appt scheduled for 06/22 (4) Full code status Current Visit: No Status: Acute Base Code: Z78.9 - OTHER SPECIFIED HEALTH STATUS Comment: 05/28/18: -Pt. is a full code - Hospitalization Course Disposition: Home, Self-Care Hospital Course: Ms. Ortiz is a 42 yo female who presented to the ED on 05/27/18 after passing out. She reports she was in the shower when it occurred. She does not recall how long she was in the shower but she was asymptomatic prior to the shower. She got warm and tingling then passed out. She states she was asymptomatic all day, but more tired than usual for the last 2 weeks. No history of syncope or CAD. She thinks she hit her head and has some neck pain. No weakness, tingling, vision or speech changes. Her history includes fibromyalgia, asthma, depression, and every-day smoker. In the ED, her labs revealed chronic stable anemia (hbg of 8.2), negative troponin, EKG normal, negative c-spine xray, negative head CT. She was admitted for observation for poss concussion- plan neuro checks and IV fluids. 05/28/18: Pt. is resting in bed. She reports a mild frontal headache and right-sided mid-back pain. She reports worsening depression over the last 2 weeks, described as increased sadness, lack of energy, difficulty sleeping, and feelings of guilt in regards to parenting. She denies SI, but does report that she has thought that her children would be better off with their father. She also reports increased bloating, gas, and diarrhea. Her IV was d/c'd due to becoming infiltrated in SC tissue. Her left arm is wrapped in a warm blanket and elevated at this time. We will plan to start low-dose xanax for severe anxiety/panic attacks only, pt was educated on side effects and risks, and that med is for short-term use only. Pt. will change her lyrica 600mg daily to 300mg bid, add daily multivitamin and probiotic. Will f/u in clinic on 06/01 and initiate BH, discuss depression medication, and referral to GI for chronic diarrhea. Pt. has [employer]PER[employer] RN appt on 06/22 for menorrhagia. Pt's reports that her mother will be staying with her at her home and helping with her children. Recommended pt to pursue FMLA until depression controlled. PCP: JULIO Shepard Procedures: Imaging and X-Rays 05/27/18 19:03 CERVICAL SPINE WO CONTRAST [CT] Stat HEAD WO CONTRAST [CT] Stat Cardiology Procedures 05/27/18 18:55 EKG NOW 05/27/18 19:03 Strike Off Machine Operator NOW 05/27/18 21:12 Strike Off Machine Operator .Continuous Abnormal Labs: Abnormal Lab Results 05/27/18 05/27/18 Range/Units 19:01 19:01 Hgb 8.2 L (11.6-16.0) gm/dl Hct 29.5 L (35.0-47.0) % MCV 69.6 L (81-97) fl MCH 19.3 L (27-33) pg MCHC 27.8 L (32-36) g/dl RDW 21.2 H (11.5-14.5) % Random Glucose 110 H (74-109) mg/dL Alkaline Phosphatase 39 L (45-87) U/L Albumin 3.9 L (4.0-5.0) g/dL Condition at Discharge: (2) Stable VTE Discharge VTE Reason For No Overlap Therapy: Not Indicated Discharge Medications - Discharge Medications Prescriptions: Alprazolam [Xanax] 0.5 mg PO BID PRN #6 tablet PRN Reason: Anxiety Home Medications: Ambulatory Orders Ibuprofen 800 mg PO Q8HR PRN 01/19/17 [Last Taken 01/19/17 12:00 800 mg] Duloxetine HCl [Cymbalta] 20 mg PO TID 05/27/18 [Last Taken Unknown] Acetaminophen [Tylenol 325Mg] 650 mg PO Q6H PRN tablet 05/28/18 [Last Taken Unknown] Alprazolam [Xanax] 0.5 mg PO BID PRN #6 tablet 05/28/18 [Last Taken Unknown] Calcium Carbonate [Tums] 500 mg PO Q4H PRN tab.chew 05/28/18 [Last Taken Unknown] Pregabalin [Lyrica] 300 mg PO BID 90 Days #360 tab 05/28/18 [Last Taken Unknown] Discharge Plan - Discharge Instructions Activity at Discharge: Increase Activity as Tolerated Diet at Discharge: Regular Diet Additional Instructions: Follow up in family practice this 06/01- our office will be calling you tomorrow with an appointment time -Behavioral health referral ordered for therapy (they will be calling you to set this up) -GI referral ordered for chronic diarrhea/bloating, family hx risk of colon cancer Start xanax 0.5mg as needed for severe anxiety and panic only You can take up to 4,000mg of tylenol daily for pain, would recommend taking 1, 000mg every 6 hours for the next 3 days Start taking a multivitamin containing iron (can take 2 flintstone vitamins) Take lyrica twice daily instead of once daily Add a daily probiotic to help with bloating/diarrhea Increase fluids, rest Obtain FMLA paperwork from your employer and bring to your appointment on 06/01. Call family practice on-call line if any of your symptoms worsen Consider calling [facility] crisis line if depression worsens Return to the ED if you experience any more episodes of passing out, if headache worsens, or if you have any chest pain Quality Measures - Quality Measures Quality Measures: Documentation of Current Medications in Medical Record, Screening for High Blood Pressure and F/U Documented - Current Medications Quality Measure: Measure #130: Documentation of Current Medications Documentation of Current Medications: <Current Medications Documented/Reviewed> [G8427] - Blood Pressure Screening Quality Measure: Screening for High Blood Pressure and Follow-Up Documented Does Patient Have Any of the Following: No Blood Pressure Classification: Pre-Hypertensive BP Reading Systolic Measurement: 132 Diastolic Measurement: 73 Screening for High Blood Pressure: < Pre-Hypertensive BP, F/U Documented > [ G8950] Pre-Hypertensive Follow-up Interventions: Follow-up with rescreen every year., Lifestyle modifications., Referral to alternative/primary care provider. Lifestyle Modification: Weight Reduction, Increased Physical Activity - Elder Abuse Suspicion Index EASI Reference Information: Edmond MOCK, Robert C, Kathrine D, Ankita Gracia.Development and validation of a tool to assist physicians identification of elder abuse: The Elder Abuse Suspicion Index (EASI ). Journal of Elder Abuse and Neglect, 2008; 20 (3): 276-300.
--- NOTE | 2018-05-29 07:39 | CT SCAN REPORT ---
EXAM: HEAD CT HISTORY: SYNCOPAL EPISODE, HEADACHE, DIZZY, HIT HEAD, NAUSEA. TECHNIQUE: Axial CT scan of the head was performed without IV contrast. Comparison: None. Encounter: Initial. FINDINGS: No definite acute intracranial hemorrhage identified. No focal mass effect or midline shift apparent. No definite acute infarct or intracranial mass lesion seen. No depressed calvarial fracture evident. There is probably a cyst or polyp within the right maxillary sinus partially seen in the lower most image. IMPRESSION: 1. NO ACUTE INTRACRANIAL HEMORRHAGE OR FOCAL MASS EFFECT IDENTIFIED. 2. THERE IS PROBABLY A CYST OR POLYP IN THE RIGHT MAXILLARY SINUS PARTIALLY SEEN ON THE LOWER MOST IMAGE. JOB NUMBER: [id number] MTDD
--- NOTE | 2018-05-29 07:46 | CT SCAN REPORT ---
EXAM: EMERGENCY CT SCAN OF THE CERVICAL SPINE HISTORY: SYNCOPE, PATIENT FELL AND HIT HEAD WITH RIGHT SIDED NECK PAIN. TECHNIQUE: Axial CT scan of the entire cervical spine was performed without IV contrast. Comparison: None. Encounter: Initial. FINDINGS: There is partial opacification of both maxillary antra which may represent some cyst or polyp formation. No apical pneumothorax is evident. No definite fracture of the cervical spine identified. No prevertebral soft tissue swelling is evident. Multilevel degenerative change seen in the cervical spine. The cervical intervertebral disk spaces themselves are relatively maintained, however. Note is made of what is probably cerumen in the left external auditory canal. There also appears to be opacification of some left mastoid air cells inferiorly. IMPRESSION: 1. NO DEFINITE FRACTURE OR PREVERTEBRAL SOFT TISSUE SWELLING SEEN IN THE CERVICAL SPINE. 2. MULTILEVEL DEGENERATIVE CHANGE IN THE CERVICAL SPINE. 3. PROBABLE CYSTS OR POLYPS IN BOTH MAXILLARY ANTRA PARTIALLY SEEN. 4. OPACIFICATION OF SOME MASTOID AIR CELLS INFERIORLY ON THE LEFT. THERE IS PROBABLY SOME CERUMEN IN THE LEFT EXTERNAL AUDITORY CANAL WELL. CORRELATION WITH PHYSICAL EXAM SUGGESTED. JOB NUMBER: [id number] [facility]
== END 2018-05-28 10:45 | disposition home or self-care (01) ==
LOC: ER 18:47 → MEDSURG 20:40
PROVIDERS: ADMIT Internal Medicine; ATTEND Internal Medicine
DX: R55 Syncope and collapse (principal); S06.0X9A Concussion with loss of consciousness of unspecified duration, initial encounter; F41.9 Anxiety disorder, unspecified; D50.9 Iron deficiency anemia, unspecified; M79.7 Fibromyalgia; F17.210 Nicotine dependence, cigarettes, uncomplicated; Z87.09 Personal history of other diseases of the respiratory system
CPT/HCPCS: 99285 ×2; 96374; 83735; 85025; 80053; 84703; 84484 ×2; 72125; 70450; 93005; 93010; G0378 ×2; J1885; 99220

== ENCOUNTER 2018-06-25 15:26 | Observation (INO) | payer BC ==
[2018-06-25 16:25] LABS: HEMATOCRIT 32.9 % (35.0-47.0); MEAN CELL VOLUME 69.3 fl (81-97); MEAN CORPUSCULAR HEMOGLOBIN 18.9 pg (27-33); MEAN CORPUSCULAR HGB CONC 27.4 g/dl (32-36); MEAN PLATELET VOLUME 10.9 fl (7.4-10.4); PLATELET COUNT 287 K/uL (130-400); RED BLOOD COUNT 4.75 M/uL (3.80-5.40); RED CELL DISTRIBUTION WIDTH 21.6 % (11.5-14.5); WHITE BLOOD COUNT W/O DIFF 7.3 K/uL (4.2-12.2)
[2018-06-25 16:41] LABS: BLOOD UREA NITROGEN 10 mg/dL (6-20); CREATININE 0.7 mg/dL (0.5-0.9); EST GLOMERULAR FILTRATION RATE > 60 mL/min
[2018-06-25] MEDS ORDERED: 0.9 % SODIUM CHLORIDE 1,000 ML BAG IV ONE (16:42)
[2018-06-25 16:43] LABS: GLUCOSE,RANDOM 93 mg/dL (74-109)
[2018-06-25 16:48] LABS: CKMB < 1.0 ng/mL (<3.77)
[2018-06-25 17:26] LABS: ANISOCYTOSIS 1+; HYPOCHROMIA 2+; MICROCYTOSIS 1+
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
[2018-06-25 18:10] LABS: URINE APPEARANCE CLEAR; URINE BILIRUBIN NEGATIVE (NEGATIVE); URINE BLOOD NEGATIVE (NEGATIVE); URINE COLOR YELLOW; URINE GLUCOSE (UA) NEGATIVE (NEGATIVE); URINE KETONE NEGATIVE (NEGATIVE); URINE NITRITE NEGATIVE (NEGATIVE); URINE PROTEIN NEGATIVE (NEGATIVE); URINE UROBILINOGEN 0.2 E.U./dL (0.20 - 1.00)
[2018-06-25 18:15] LABS: AMPHETAMINE SCREEN URINE NOT DETECTED; BARBITURATE SCREEN URINE NOT DETECTED; BENZODIAZEPINE SCREEN URINE NOT DETECTED; COCAINE SCREEN URINE NOT DETECTED; METHADONE SCREEN URINE NOT DETECTED; METHAMPHETAMINE SCREEN NOT DETECTED; OPIATE SCREEN URINE NOT DETECTED; OXYCODONE SCREEN URINE NOT DETECTED; PHENCYCLIDINE SCREEN URINE NOT DETECTED; PROPOXYPHENE SCREEN URINE NOT DETECTED; THC SCREEN URINE NOT DETECTED; TRICYCLIC ANTIDEPRESSANT SCRN NOT DETECTED
[2018-06-25 18:20] LABS: URINE LEUKOCYTE ESTERASE TRACE (NEGATIVE)
[2018-06-25 18:21] LABS: URINE AMORPHOUS SEDIMENT 1+; URINE EPITHELIAL CELLS 0 - 2 (FEW); URINE RBC 0 - 2 (NONE SEEN); URINE WBC 0 - 2 (0-2/hpf)
[2018-06-25] MEDS ORDERED: ACETAMINOPHEN 500 MG TABLET PO PRN (19:56)
[2018-06-25] MEDS ORDERED: ALBUTEROL SULFATE (0.083%) 2.5 MG/3 ML NEB INH SCH (22:00)
--- NOTE | 2018-06-26 07:31 | CT SCAN REPORT ---
EXAM: CT OF THE BRAIN WITHOUT CONTRAST HISTORY: SYNCOPE, HEAD INJURY, ANEMIA. TECHNIQUE: Noncontrast images of the brain are obtained. FINDINGS: The brain volume is normal. There is no evidence of hemorrhage, mass effect, midline shift, or acute transcoronal infarction. No extraaxial fluid collections are seen. The ventricles and basal cisterns are preserved. IMPRESSION: NORMAL CT OF THE BRAIN WITHOUT CONTRAST. JOB NUMBER: [id number] MTDD
[2018-06-26 07:40] LABS: FERRITIN 3.46 ng/mL (13-150)
[2018-06-26] MEDS ORDERED: ALBUTEROL SULFATE (0.083%) 2.5 MG/3 ML NEB INH PRN (09:45)
[2018-06-26] MEDS ORDERED: DULOXETINE HCL 30 MG CAPSULE.DR PO SCH (10:00)
[2018-06-26] MEDS ORDERED: PREGABALIN (LYRICA) 100MG CAPSULE PO SCH (10:00)
[2018-06-26] MEDS ORDERED: MULTIVITAMINS/MINERALS TABLET PO SCH (10:00)
[2018-06-26] MEDS ORDERED: PREGABALIN 50 MG CAPSULE PO SCH (10:00)
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
[2018-06-26] MEDS ORDERED: LYRICA 150 MG PO SCH (11:00)
[2018-06-26] MEDS ORDERED: PATIENT OWN MED: DULOXETINE 60 MG PO SCH (11:00)
[2018-06-26] MEDS ORDERED: IRON SUCROSE COMPLEX IVPB ONE (11:00)
[2018-06-26] MEDS ORDERED: SODIUM CHLORIDE 0.9% IVPB ONE (11:00)
--- NOTE | 2018-06-26 11:45 | Discharge Summary ---
Providers Discharge Summary Date: 06/26/18 Date of admission: 06/25/18 19:34 Attending physician: YOLANDA REED Primary care physician: Dalia De La Cruz N.P. Consults: Consult Orders 06/26/18 09:09 Consult - Cardiology NOW Consulting Provider: AKILAH SOLIS Physician Instructions: Reason For Exam: syncope Does pt have current capacitor tester?: Unknown Physical Exam - Vital Signs Vital Signs: Vital Signs - Last 24 Hrs Temp Pulse Pulse Resp BP BP Pulse Ox 06/26/18 06:00 97.8 F 58 L 18 130/61 96 06/25/18 19:56 98.4 F 51 L 20 131/75 92 L 06/25/18 19:48 61 20 128/77 97 06/25/18 19:27 61 20 128/77 97 06/25/18 17:12 53 L 16 121/65 97 06/25/18 16:30 57 L 16 123/75 97 06/25/18 15:28 99.0 F 78 16 127/88 100 - General General Appearance: Alert, Oriented x3, No acute distress Limitations: No limitations - Head Head exam: Normocephalic - Eye Eye exam: Normal appearance - ENT ENT exam: Normal exam - Neck Neck exam: Normal inspection - Respiratory Respiratory exam: Normal lung sounds bilaterally - Cardiovascular Cardiovascular Exam: Regular rate, Normal rhythm, Bradycardia Peripheral Pulses: 2+: Dorsalis Pedis (R), Dorsalis Pedis (L) - GI/Abdominal GI/Abdominal exam: Soft - Rectal Rectal exam: Deferred - exam: Deferred - Extremities Extremities exam: Normal inspection - Neurological Neurological exam: Alert, CN II-XII intact, Oriented X3 - Psychiatric Psychiatric exam: Flat affect Hospitalization - Hospitalization Admission Diagnosis: syncope, anemia, head injury - Problem List/Discharge Diagnosis (1) Syncope Status: Acute Discharge Diagnosis: Syncope type: unspecified Qualified Code(s): R55 - Syncope and collapse Base Code: R55 - SYNCOPE AND COLLAPSE Comment: 06/26/18: -Chronic anemia vs. cardiac related vs. psychiatric cause? -Neuro checks wnl -Echocardiogram completed, results not available -EKG - Sinus Bradycardia -Cardiology and PCP f/u appointment made (2) Full code status Status: Acute Base Code: Z78.9 - OTHER SPECIFIED HEALTH STATUS Comment: 06/26: -Pt. is a full code (3) Iron deficiency anemia Status: Acute Base Code: D50.9 - IRON DEFICIENCY ANEMIA, UNSPECIFIED Comment : 06/26/18: - No obvious signs of bleeding - Hx of irreg menstrual periods, has not f/u with Equipment Oiler - Hgb 9.0 - Venofer infusion completed d/t inability to tolerate PO Iron d/t GI upset - Pt instructed by Pharmacist and nursing staff to have a 2nd infusion in 2 weeks. - Hospitalization Course Disposition: Home, Self-Care Hospital Course: Pamela Ortiz is a 42 y.o. F who presented to [facility] ED in the afternoon on 06/25/2018 after passing out while in the shower and hitting her head. Reports that she was near the end of her shower when she felt the warmth, fuzziness and dizziness coming on so she attempted to grab the windowsill but still fell backwards. States that she hit her head and "came to" with her legs hanging over the bathtub. States that this same thing happened approximately 1 month ago, when at the end of her shower. Denies having had a bowel movement prior to the shower. Denies having any heart problems or history of heart testing. However, review of past medical records (from previous PCP in [facility] system) indicates that she has had an echocardiogram and holter monitor in 2016. States that she does have anemia but believes that it is a fairly new diagnosis. Denies having heavy periods, states that she hasn't had a period lately. However, review of PCP medical records indicates that she was referred to media operator for menorrhagia. Was trialed on oral iron for iron deficiency anemia but pt unable to tolerate d/t GI upset. Has been taking children's multivitamins. Denies having any blood glucose problems. Does take Lyrica 600mg and Cymbalta 120mg, all at the same time in the mornings. PMHx includes tobacco use, asthma, hx of PNA, Fibromyalgia, Gout, anxiety, depression, anemia PCP: Dalia De La Cruz [facility] ED Course VS: T 99.0, HR 78, RR 16, BP 127/88, SPO2 100% on RA CT of Brain: Negative EKG: Sinus Bradycardia GCS 15 06/26/18: Today, pt reports that she wants to go home right away. Denies having any dizziness or significant headache. Denies nausea or vomiting. Denies any vaginal bleeding, blood in stool or blood in urine. Does not want to stay for recommended Cardiology Consult, is agreeable to following up as an outpatient with Cardiology. 06/26/18 1100: Pt agreed to have echocardiogram and Venofer infusion prior to discharge. Agreed to f/u with Cardiology outpatient this week as well as with PCP and behavioral health counselor. Procedures: Imaging and X-Rays 06/25/18 16:07 HEAD WO CONTRAST [CT] Stat Cardiology Procedures 06/25/18 15:50 EKG NOW 06/25/18 16:09 Appeals And Generalist Clerk NOW 06/25/18 20:22 EKG NOW 06/25/18 20:23 Echo W/CF & Cardiac Doppler ONCE Abnormal Labs: Abnormal Lab Results 06/25/18 06/25/18 06/26/18 Range/Units 16:10 18:00 06:25 Hgb 9.0 L (11.6-16.0) gm/dl Hct 32.9 L (35.0-47.0) % MCV 69.3 L (81-97) fl MCH 18.9 L (27-33) pg MCHC 27.4 L (32-36) g/dl RDW 21.6 H (11.5-14.5) % MPV 10.9 H (7.4-10.4) fl Iron 17 L (37-145) ug/dL TIBC 407 H (105-326) ug/dL % Saturation 4 L (20-50) % Ferritin 3.46 L (13-150) ng/mL Ur Leukocyte Esterase Trace H (NEGATIVE) Condition at Discharge: (1) Good Discharge Medications - Discharge Medications Home Medications: Ambulatory Orders Acetaminophen [Tylenol 325Mg] 650 mg PO Q6H PRN tablet 05/28/18 [Last Taken 04/03] Albuterol Sulfate 0.083% [Neb] [Albuterol Sulfate] 3 ml NEB Q4H PRN 06/26/18 [ Last Taken 06/26/18] Albuterol Sulfate [Proair Hfa] 2 inh INH Q4H PRN 06/26/18 [Last Taken 06/26/18] Duloxetine HCl [Cymbalta] 120 mg PO DAILY 06/26/18 [Last Taken 06/26/18] Pregabalin [Lyrica] 600 mg PO DAILY 06/26/18 [Last Taken 06/26/18] Discharge Plan - Discharge Instructions Activity at Discharge: Increase Activity as Tolerated Diet at Discharge: Advance to Usual Diet Instructions: Syncope (DC) Additional Instructions: Follow up with [facility] (Genesis Josue) at [facility] on 06/29 at 2: 30PM Follow up with Dalia at [facility] Family Practice 07/05 at 9:20AM. Remember to request a warm handoff to Behavioral Health for your anxiety. Have second Iron infusion in 2 weeks Quality Measures - Quality Measures Quality Measures: Documentation of Current Medications in Medical Record, Screening for High Blood Pressure and F/U Documented - Current Medications Quality Measure: Measure #130: Documentation of Current Medications Documentation of Current Medications: <Current Medications Documented/Reviewed> [G8427] - Blood Pressure Screening Quality Measure: Screening for High Blood Pressure and Follow-Up Documented Does Patient Have Any of the Following: No Blood Pressure Classification: Pre-Hypertensive BP Reading Systolic Measurement: 128 Diastolic Measurement: 77 Screening for High Blood Pressure: < Pre-Hypertensive BP, F/U Documented > [ G8950] Pre-Hypertensive Follow-up Interventions: Referral to alternative/primary care provider. - Elder Abuse Suspicion Index EASI Reference Information: Edmond MOCK, Robert C, Kathrine D, Ankita Gracia.Development and validation of a tool to assist physicians identification of elder abuse: The Elder Abuse Suspicion Index (EASI ). Journal of Elder Abuse and Neglect, 2008; 20 (3): 276-300.
== END 2018-06-26 14:51 | disposition home or self-care (01) ==
LOC: ER 15:26 → MEDSURG 19:34
PROVIDERS: ADMIT Internal Medicine; ATTEND Internal Medicine
DX: R55 Syncope and collapse (principal); D50.9 Iron deficiency anemia, unspecified; W18.2XXA Fall in (into) shower or empty bathtub, initial encounter; M79.7 Fibromyalgia; J45.909 Unspecified asthma, uncomplicated; F17.210 Nicotine dependence, cigarettes, uncomplicated
CPT/HCPCS: 83550; 82553; 80048; 81001; 82728; 80305; 85379; 85027; 70450; 93005 ×2; 93010; 93306; G0378 ×2; J1756; 99220; 99285; J7030; J7050

== ENCOUNTER 2018-06-26 18:14 | Emergency (ER) | payer BC | END 2018-06-26 18:25 | disposition home or self-care (01) | LOC: ER 18:14 | DX: Z53.9 Procedure and treatment not carried out, unspecified reason (principal) ==

== ENCOUNTER 2018-06-26 18:16 | Emergency (ER) | payer BC ==
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
[2018-06-26] MEDS ORDERED: 0.9 % SODIUM CHLORIDE 1000ML 1,000 ML IV SCH (18:45)
[2018-06-26 18:51] LABS: HEMOGLOBIN 7.8 gm/dl (11.6-16.0); WHITE BLOOD COUNT W/O DIFF 11.4 K/uL (4.2-12.2)
[2018-06-26 18:52] LABS: HEMATOCRIT 27.1 % (35.0-47.0); MEAN CELL VOLUME 69.5 fl (81-97); MEAN CORPUSCULAR HGB CONC 28.8 g/dl (32-36); MEAN PLATELET VOLUME 10.2 fl (7.4-10.4); PLATELET COUNT 197 K/uL (130-400); RED CELL DISTRIBUTION WIDTH 20.9 % (11.5-14.5)
[2018-06-26 19:01] LABS: ANISOCYTOSIS 2+; HYPOCHROMIA 1+
== END 2018-06-26 21:29 | disposition short-term general hospital (02) ==
LOC: ER 18:16
DX: R55 Syncope and collapse (principal); D64.89 Other specified anemias; F41.8 Other specified anxiety disorders; F17.200 Nicotine dependence, unspecified, uncomplicated; M79.7 Fibromyalgia
CPT/HCPCS: 85027; 93005; 93010; 99285; J7030

== ENCOUNTER 2018-08-11 11:22 | Day surgery (SDC) | payer BC ==
[2018-08-11] MEDS ORDERED: PROPOFOL 10 MG/ML VIAL IV ONE (11:23)
[2018-08-11] MEDS ORDERED: LIDOCAINE 2% MDV (20MG/ML) 20ML VIAL IV ONE (11:23)
--- NOTE | 2018-08-15 08:50 | Operative Note ---
DATE OF SURGERY: 08/11/2018 SURGEON: Kelby Schaefer MD OPERATION: COLONOSCOPY. INDICATIONS: This is a 43-year-old female with family history of colorectal cancer in mother who has had chronic diarrhea, now presented for colonoscopy. POSTOPERATIVE DIAGNOSES: 1. Grossly normal colonic and terminal ileal mucosa with no neoplastic or ulcerative lesions. 2. Suboptimal bowel preparation. ANESTHESIA: Sedation is per Anesthesia. Pulse oximetry was monitored throughout the procedure to maintain O2 saturation of 90% or greater. Supplemental oxygen was administered via nasal cannula. Cardiac and vital signs were monitored throughout the duration of the procedure, and they were stable. The procedure of colonoscopy and risks and alternatives of the procedure, including the risk of bleeding and perforation, among others, were explained to the patient who voiced understanding and agreed to have the procedure done. Physical examination was performed, and the patient was found stable for sedation. PROCEDURE: The patient was placed in the left lateral position. Sedation was initiated. A digital rectal exam was performed and showed some mild external hemorrhoids with no palpable rectal masses. An Olympus PCF-180AL colonoscope was then inserted into the rectum under direct visualization. It was advanced to the cecum without difficulty. The ileocecal valve and appendiceal orifice were identified and photographed. The colonic mucosa was carefully examined upon introduction of the colonoscope. There were no gross lesions noted. There was pasty stool debris in the cecum as well as ascending colon. Cannot exclude any significant lesions. The colonoscope was then advanced to the terminal ileum for about 10 cm and it appeared normal. The colonoscope was then withdrawn while carefully examining the colonic mucosal surfaces. No other lesions were noted. Random colon biopsies were obtained to rule out microscopic colitis. In the rectum, retroflexion was performed and grade 1 internal hemorrhoids were noted. The colonoscope was then withdrawn and the procedure was terminated. The patient tolerated the procedure well without any immediate complications. The patient remained with stable vital signs and was transferred to the recovery room. RECOMMENDATIONS: 1. The patient continue on a high-fiber diet. 2. The patient is to have a repeat colonoscopy in about a year with 2-day bowel preparation. Thank you for allowing me to participate in the care of your patient. CC: HIREN Shepard
== END 2018-08-11 12:55 | disposition home or self-care (01) ==
LOC: HOP 11:22
PROVIDERS: ATTEND Internal Medicine Gastroenterology
DX: K52.9 Noninfective gastroenteritis and colitis, unspecified (principal); Z80.0 Family history of malignant neoplasm of digestive organs
CPT/HCPCS: 81025